=== PATIENT | female | born 1955 | race Caucasian/White ===

== ENCOUNTER 2018-01-20 14:40 | Outpatient (CLI) | payer OTHER | END 2018-01-20 15:30 | disposition home or self-care (01) | LOC: SLEEP 14:40 | PROVIDERS: ATTEND Nurse Practitioner Family | DX: G47.10 Hypersomnia, unspecified (principal); G47.50 Parasomnia, unspecified; J44.9 Chronic obstructive pulmonary disease, unspecified; R60.0 Localized edema; M79.7 Fibromyalgia; F41.9 Anxiety disorder, unspecified; Z87.891 Personal history of nicotine dependence ==

== ENCOUNTER → 2018-01-21 | Outpatient (CLI) | payer OTHER ==
[2018-01-21 14:49] LABS: ABG BASE EXCESS 1.1 MMOL/L (-2.5-2.5); ABG OXYGEN SATURATION 98 % (94-100); ABG PCO2 38 MMHG (35-45); ABG PH 7.44 (7.37-7.43); ABG PO2 97 MMHG (79-93)
[2018-01-21 14:50] LABS: ALLENS TEST YES-POS; INSPIRED O2 RA; VENTILATOR NO
--- NOTE | 2018-01-21 16:12 | Diagnostic Imaging Report ---
PATIENT HISTORY: Difficulty breathing. TECHNIQUE: Two views of the chest. COMPARISON: None. FINDINGS: The lung volumes are normal. No focal consolidation is seen. No large pleural effusion or pneumothorax is seen. The cardiomediastinal silhouette is normal in size and contour. No acute osseous abnormality is seen. IMPRESSION: No acute pulmonary abnormality seen. Dictated by: Dictated on workstation # [id number]
== END ==
LOC: RAD 13:59
PROVIDERS: ATTEND Nurse Practitioner Family
DX: J44.9 Chronic obstructive pulmonary disease, unspecified (principal); G47.50 Parasomnia, unspecified; G47.10 Hypersomnia, unspecified; M79.7 Fibromyalgia; F41.9 Anxiety disorder, unspecified; Z87.891 Personal history of nicotine dependence
CPT/HCPCS: 36600; 71046; 82805

== ENCOUNTER → 2018-02-08 | Outpatient (CLI) | payer OTHER | LOC: CARD 10:13 → EDUNIT# 11:00 | PROVIDERS: ATTEND Nurse Practitioner Family | DX: R06.09 Other forms of dyspnea (principal) | CPT/HCPCS: 93225; 93226; 93306 ==

== ENCOUNTER → 2018-02-14 | Outpatient (CLI) | payer OTHER ==
[~2018-02-14] MED LIST: RT-ALBUTEROL SULF 2.5 MG/3 ML PRE-MIX VIAL INH ONE
== END ==
LOC: EDUNIT# 01-26 13:00 → RT 09:57
PROVIDERS: ATTEND Nurse Practitioner Family
DX: J44.9 Chronic obstructive pulmonary disease, unspecified (principal); Z87.891 Personal history of nicotine dependence; R06.00 Dyspnea, unspecified; G47.50 Parasomnia, unspecified; G47.10 Hypersomnia, unspecified; M79.7 Fibromyalgia; F41.9 Anxiety disorder, unspecified
CPT/HCPCS: 94060; 94726; 94729

== ENCOUNTER → 2018-02-15 | Outpatient (CLI) | payer OTHER ==
[~2018-02-15] MED LIST changes: +CATHETER FLUSH 10 ML SYR IV PRN; +REGADENOSON 0.4 MG/5 ML SYR (LEXISCAN) IV ONE; -RT-ALBUTEROL SULF 2.5 MG/3 ML PRE-MIX VIAL INH ONE
[2018-02-15 08:51] VITALS: BP 138/80
[2018-02-15 09:16] VITALS: BP 146/82
--- NOTE | 2018-02-15 12:25 | STRESS TEST ---
DATE OF SERVICE: 02/15/2018 RESTING AND POST REGADENOSON TECHNETIUM-99M TETROFOSMIN SPECT CT IMAGING ORDERING PHYSICIAN: Anna Medina APRN CLINICAL DIAGNOSES: Shortness of breath and chest discomfort. Baseline images were carried out after injection of 10.7 mCi of technetium-99m Tetrofosmin. This was followed by 0.4 mg regadenoson and 30.5 mCi of technetium-99m Tetrofosmin for stress imaging. The electrocardiogram showed sinus rhythm at baseline. It did not change significantly with the regadenoson infusion. The patient noted some shortness of breath and coughing following regadenoson infusion, which resolved in a few minutes. Overall, she tolerated the procedure well. Review of images at rest and following stress indicates a minimal, localized apical perfusion defect that appeared transient. Gated images show normal global left ventricular systolic function, normal regional wall motion. Left ventricular ejection fraction is calculated to be 86%. Left ventricular end diastolic volume 37 mL. CONCLUSIONS: 1. This study is suggestive of a small amount of apical ischemia. 2. Normal regional wall motion. 3. Normal global left ventricular systolic function with ejection fraction of approximately 86%. Job ID: [id number] DocumentID: [id number] Dictated Date: 02/15/2018 11:51:13 Food Mixer Date: 02/15/2018 12:24:28 Dictated By: REEMA AMEZCUA MD, MA, FACP, FACC,
== END ==
LOC: EDUNIT# 02-04 08:00 → CARD 07:09
PROVIDERS: ATTEND Nurse Practitioner Family
DX: I10 Essential (primary) hypertension (principal); R06.09 Other forms of dyspnea; R07.89 Other chest pain
CPT/HCPCS: 78452; 93017

== ENCOUNTER 2018-02-22 10:10 | Day surgery (SDC) | payer OTHER ==
[2018-02-22] VITALS (11 sets, daily range): BP systolic 115–166; BP diastolic 68–96
[~2018-02-22] VITALS: Ht 170.2 cm; Wt 124.7 kg
--- OUTSIDE RECORDS SUMMARY | 2018-02-22 10:13 | XMS REPORT ---
Author Author KEVYN RAMOS [facility] Address [address] [place] [address] Care Team Providers Care Boiling House Oiler Name Role Phone KEVYN RAMOS Unavailable PROBLEMS Type Condition ICD9-CM Code [id number] Code Onset Dates Condition Status SNOMED Code Problem COPD mixed type J44.9 Active 04174175 Problem Tobacco abuse Z72.0 Active 133531332 Problem PVC (premature ventricular contraction) I49.3 Active 42389455 Problem Tear of lateral meniscus of right knee, current, unspecified tear type , initial encounter S83.281A Active 674310178 Problem Fibromyalgia M79.7 Active 736558094 Problem Tear of medial meniscus of right knee, current, unspecified tear type , initial encounter S83.241A Active 466224320 Problem Current moderate episode of major depressive disorder without prior episode F32.1 Active 79487737 Problem Chronic GERD K21.9 Active 726114851 Problem SCHMITZ (dyspnea on exertion) R06.09 Active 77622562 Problem Other chest pain R07.89 Active 37143753 Problem Primary osteoarthritis of right knee M17.11 Active 693543594594650 Problem History of rheumatoid arthritis Z87.39 Active 904889529 Problem Morbid (severe) obesity due to excess calories E66.01 Active 56249682386436 Problem Essential hypertension I10 Active 24801343 Problem Other chronic pain G89.29 Active 23145272 Problem Mixed hyperlipidemia E78.2 Active 354496645 Problem Sleep difficulties G47.9 Active 601291318 Problem Body mass index (BMI) of 40.0-44.9 in adult Z68.41 Active 698443725 Problem Anxiety F41.9 Active 57188249 Problem Rheumatoid arthritis involving multiple sites, unspecified rheumatoid factor presence M06.9 Active 889185043 Problem Poor balance R26.89 Active 686280447 Problem Suspected chronic obstructive pulmonary disease based on initial evaluation J44.9 Active 56739886 ALLERGIES No Known Allergies ENCOUNTERS Encounter Location Date Diagnosis [facility] [id number], [place] [id number] Feb, [facility] [id number], [place] [id number] Jan, Primary osteoarthritis of right knee M17.11 ; Chronic GERD K21.9 ; History of rheumatoid arthritis Z87.39 and Mixed hyperlipidemia E78.[address] [place] [id number] Dec, [facility] [id number][place] [id number] Dec, SCHMITZ (dyspnea on exertion) R06.09 ; Other chest pain R07.89 ; Essential hypertension I10 ; Tobacco abuse Z72.0 and PVC (premature ventricular contraction) I49.3 [facility] [address] [place] [address] AV [id number], [place] [id number] Dec, [facility] [address] [place] [address] AV [id number], [place] [id number] Dec, Tear of medial meniscus of right knee, current, unspecified tear type, initial encounter S83.241A and Tear of lateral meniscus of right knee, current, unspecified tear type, initial encounter S83.281A [facility] [address] [place] [address] [id number], [place] [id number] Nov, Right knee pain M25.561 and Encounter for immunization Z23 [facility] [address] [place] [address] AV [id number], [place] [id number] Oct, Acute pain of right knee M25.[address] [id number], [place] [id number] Oct, [address] [place] [id number] Oct, Essential hypertension I10 ; Mixed hyperlipidemia E78.2 ; Current moderate episode of major depressive disorder without prior episode F32.1 ; Anxiety F41.9 ; Chronic GERD K21.9 ; Acute pain of right knee M25.561 ; Fibromyalgia M79.7 ; COPD mixed type J44.9 ; Cough R05 ; BMI 40.0-44.9, adult Z68.41 [address] Sleep [address] G47.9 [facility] [address] [facility] [address] [id number][place] [id number] Oct, [facility] [place] [id number], [place] [id number] Sep, COPD mixed type J44.[address] [place] [id number] Aug, Chronic GERD K21.9 ; Essential hypertension I10 ; SOB (shortness of breath ) on exertion R06.02 ; Morbid (severe) obesity due to excess calories E66.01 ; Body mass index (BMI) of 40.0-44.9 in adult Z68.41 and BMI 40.0-44.9, adult Z68.[address] [place] [address] [id number] Aug, COPD mixed type J44.[address] [id number], [place] [id number] Aug, SOB (shortness of breath) on exertion R06.[address] [place] [address] [id number] Aug, [place] [address] [place] [address] [id number] Aug, BMI 40.0-44.9, adult Z68.41 ; Essential hypertension I10 ; Suspected chronic obstructive pulmonary disease based on initial evaluation J44.9 and SOB (shortness of breath) on exertion R06.02 [facility] [address] [facility] [id number], [place] [id number] July, [address] [place] [address] [id number] July, Suspected chronic obstructive pulmonary disease based on initial evaluation J44.9 and Cough R05 [facility] [place] [address] [place] [address] [id number] July, Essential hypertension I10 ; COPD mixed type J44.9 ; Suspected chronic obstructive pulmonary disease based on initial evaluation J44.9 ; Cough R05 ; Encounter for immunization Z23 and BMI 40.0-44.9, adult Z68.[address] [place] [address] [id number] Jun, Essential hypertension I10 ; Chronic GERD K21.9 ; SOB (shortness of breath ) on exertion R06.02 ; Suspected chronic obstructive pulmonary disease based on initial evaluation J44.9 and Elevated blood pressure reading R03.0 [place] [id number] [place] [id number] May, [place] [address] [place] [id number] Apr, Mixed hyperlipidemia E78.2 ; Current moderate episode of major depressive disorder without prior episode F32.1 ; Anxiety F41.9 ; Fibromyalgia M79.7 ; Essential hypertension I10 ; Sleep difficulties G47.9 ; Chronic GERD K21.9 ; BMI 40.0-44.9, adult Z68.41 ; Rheumatoid arthritis involving multiple sites, unspecified rheumatoid factor presence M06.9 and Cough R05 [place] [address] [place] [id number] Mar, BMI 40.0-44.9, adult Z68.41 and Influenza J11.1 [place] [address] [place] [address] [id number] Mar, Current moderate episode of major depressive disorder without prior episode F32.1 ; Anxiety F41.9 ; Fibromyalgia M79.7 ; Essential hypertension I10 ; Sleep difficulties G47.9 ; Mixed hyperlipidemia E78.2 ; Chronic GERD K21.9 ; Poor balance R26.89 ; Morbid (severe) obesity due to excess calories E66.01 ; Body mass index (BMI) of 40.0-44.9 in adult Z68.41 ; Epigastric pain R10.13 ; Other chronic pain G89.29 and BMI 40.0-44.9, adult Z68.[address] [place] [id number] Mar, IMMUNIZATIONS No Known Immunizations SOCIAL HISTORY Never Assessed REASON FOR VISIT Cardiology consult PLAN OF CARE Activity Details Follow Up 2 Months Reason: Pending Test Holter Test Pending Test Lexiscan Stress Nuclear Test VITAL SIGNS Height 67.5 in 2017-12-31 Weight 275 lbs 2017-12-31 Heart Rate 88 bpm 2017-12-31 Respiratory Rate 18 2017-12-31 BMI 42.43 kg/m2 2017-12-31 Blood pressure systolic 136 mmHg 2017-12-31 Blood pressure diastolic 84 mmHg 2017-12-31 MEDICATIONS Medication Instructions Dosage Frequency Start Date End Date Duration Status Melatonin 5 MG Orally Once a day 1 tablet at bedtime as needed with food 24h Active Nexium 40 mg Orally Once a day 1 capsule 24h 30 days Active Aspirin 325 MG Orally Once a day 1 tablet 24h Active Naproxen 500 MG Orally every 12 hrs 1 tablet with food or milk as needed 12h Active Losartan Potassium 100 mg Orally Once a day 1 tablet Once a day Orally 0 24h 30 days Active Atorvastatin Calcium 20 mg Orally Once a day at bedtime 1 tablet Oct, 0 days Active ProAir RespiClick 108 (90 Base) MCG/ACT Inhalation every 4-6 hrs 2 puffs as needed Apr, 30 days Active Amlodipine Besylate 5 mg Orally as directed TAKE ONE TABLET BY MOUTH DAILY 30 days Active Lexapro 20 mg Orally Once a day 1 tablet 24h Active Hydrochlorothiazide 50 mg Orally Once a day 1 tablet in the morning 24h 30 days Active Tramadol HCl 50 mg Orally every 6 hrs 1 tablet as needed 6h Nov, Dec, 30 days Active Effexor 150 MG Orally Once a day 1 tablet with food 24h Active BusPIRone HCl 10 mg Orally 3 times a day 1 tablet 8h Active Symbicort 160-4.5 MCG/ACT Inhalation Twice a day 2 puffs 12h Jan, 30 days Active Gabapentin 800 MG Orally 4 times a day 1 tablet 6h Active Singulair 10 mg Orally Once a day 1 tablet in the evening 24h July, 30 days Active RESULTS Name Result Date Reference Range Echo 2D PROCEDURES Procedure Date Ordered Result Body Site EKG, TRACING (IN-HOUSE) 2017-12-31 N/A ELECTROCARDIOGRAM, TRACING Dec 31, 2017 INSTRUCTIONS MEDICATIONS ADMINISTERED No Known Medications MEDICAL (GENERAL) HISTORY Type Description Date Medical History fibromyalgia Medical History hypertension Medical History rheumatoid arthritis Medical History depression Medical History anxiety Medical History irritable bowel syndrome Medical History restless leg syndrome Medical History chronic obstructive pulmonary disease (COPD) Medical History CXR 09/01/17 lungs are clear, heart silhouette is normal, no acuet diseaase, no significant abnormality noted. Surgical History Total hysterectomy, abdominal 1992 Surgical History tonsillectomy 1962 Surgical History cholecystectomy 1994 Surgical History arthroscopoy right knee 1996 Hospitalization History Surgery(s)/Childbirth(s) only Hospitalization History concussion 1989
--- OUTSIDE RECORDS SUMMARY | 2018-02-22 10:13 | XMS REPORT ---
Author Author BRITTANIE ALANIS [facility] Address [address] [place] [address] Care Team Providers Care Precision Assembly Inspector Name Role Phone BRITTANIE ALANIS Unavailable PROBLEMS Type Condition ICD9-CM Code [id number] Code Onset Dates Condition Status SNOMED Code Problem Tobacco abuse Z72.0 Active 121758571 Problem SCHMITZ (dyspnea on exertion) R06.09 Active 96495730 Problem Other chest pain R07.89 Active 44622386 Problem Hyperlipidemia, unspecified hyperlipidemia type E78.5 Active 16320104 Problem Fibromyalgia M79.7 Active 495570318 Problem Tear of lateral meniscus of right knee, current, unspecified tear type , initial encounter S83.281A Active 326932559 Problem Current moderate episode of major depressive disorder without prior episode F32.1 Active 93656497 Problem Sleep difficulties G47.9 Active 703092807 Problem History of rheumatoid arthritis Z87.39 Active 252516858 Problem PVC (premature ventricular contraction) I49.3 Active 55449617 Problem Tear of medial meniscus of right knee, current, unspecified tear type , initial encounter S83.241A Active 704236263 Problem Primary osteoarthritis of right knee M17.11 Active 555684782321928 Problem Morbid (severe) obesity due to excess calories E66.01 Active 71365184880255 Problem Essential hypertension I10 Active 23619125 Problem Other chronic pain G89.29 Active 67716713 Problem Mixed hyperlipidemia E78.2 Active 342190766 Problem Body mass index (BMI) of 40.0-44.9 in adult Z68.41 Active 542931070 Problem Rheumatoid arthritis involving multiple sites, unspecified rheumatoid factor presence M06.9 Active 368864619 Problem Anxiety F41.9 Active 81520603 Problem Suspected chronic obstructive pulmonary disease based on initial evaluation J44.9 Active 74771434 Problem Poor balance R26.89 Active 935637145 Problem Chronic GERD K21.9 Active 218863063 Problem COPD mixed type J44.9 Active 94790423 ALLERGIES No Information ENCOUNTERS Encounter Location Date Diagnosis [facility] [address] [id number][place] [id number] Feb, Essential hypertension I10 [facility] [address] [place] [address] AVE [id number], [place] [id number] Feb, Chest pain, unspecified type R07.9 ; SCHMITZ (dyspnea on exertion) R06.09 ; Essential hypertension I10 ; Hyperlipidemia, unspecified hyperlipidemia type E78.5 and Tobacco abuse Z72.0 [facility] [address] [place] [address] A[address] [id number], [place] [id number] Jan, Primary osteoarthritis of right knee M17.11 ; Chronic GERD K21.9 ; History of rheumatoid arthritis Z87.39 and Mixed hyperlipidemia E78.2 [facility] [id number], [place] [id number] Dec, [facility] [address] [place] [address] [id number] [place] [address] [id number] Dec, SCHMITZ (dyspnea on exertion) R06.09 ; Other chest pain R07.89 ; Essential hypertension I10 ; Tobacco abuse Z72.0 and PVC (premature ventricular contraction) I49.3 [facility] [address] [place] [address] A[address] [id number], [place] [id number] Dec, [facility] [address] [place] [address] A[address] [id number], [place] [id number] Dec, Tear of medial meniscus of right knee, current, unspecified tear type, initial encounter S83.241A and Tear of lateral meniscus of right knee, current, unspecified tear type, initial encounter S83.281A [facility] [address] [place] [address] A[address] [id number], [place] [id number] Nov, Right knee pain M25.561 and Encounter for immunization Z23 [facility] [address] [facility] [address] [id number], [place] [id number] Oct, Acute pain of right knee M25.561 [facility] [id number] [place] [address] [id number] Oct, [place] [id number] [id number] Oct, Essential hypertension I10 ; Mixed hyperlipidemia E78.2 ; Current moderate episode of major depressive disorder without prior episode F32.1 ; Anxiety F41.9 ; Chronic GERD K21.9 ; Acute pain of right knee M25.561 ; Fibromyalgia M79.7 ; COPD mixed type J44.9 ; Cough R05 ; BMI 40.0-44.9, adult Z68.41 and Sleep difficulties G47.[address] [id number], [place] [id number] Oct, [address] [place] [id number] Sep, COPD mixed type J44.9 [address] [id number] Aug, Chronic GERD K21.9 ; Essential hypertension I10 ; SOB (shortness of breath ) on exertion R06.02 ; Morbid (severe) obesity due to excess calories E66.01 ; Body mass index (BMI) of 40.0-44.9 in adult Z68.41 and BMI 40.0-44.9, adult Z68.41 [address] [place] [address] [id number] Aug, COPD mixed type J44.[address] [id number], [place] [id number] Aug, SOB (shortness of breath) on exertion R06.[address] [id number], [place] [id number] Aug, [address] [place] [address] [id number] Aug, BMI 40.0-44.9, adult Z68.41 ; Essential hypertension I10 ; Suspected chronic obstructive pulmonary disease based on initial evaluation J44.9 and SOB (shortness of breath) on exertion R06.02 [address] [place] [address] [id number] July, [address] [place] [address] [id number] July, Suspected chronic obstructive pulmonary disease based on initial evaluation J44.9 and Cough R05 [place] [id number] [place] [address] [id number] July, Essential hypertension I10 ; COPD mixed type J44.9 ; Suspected chronic obstructive pulmonary disease based on initial evaluation J44.9 ; Cough R05 ; Encounter for immunization Z23 and BMI 40.0-44.9, adult Z68.41 [place] [id number] [place] [address] [id number] Jun, Essential hypertension I10 ; Chronic GERD K21.9 ; SOB (shortness of breath ) on exertion R06.02 ; Suspected chronic obstructive pulmonary disease based on initial evaluation J44.9 and Elevated blood pressure reading R03.0 [place] [id number] [place] [address] [id number] May, [place] [id number] [place] [address] [id number] Apr, Mixed hyperlipidemia E78.2 ; Current moderate episode of major depressive disorder without prior episode F32.1 ; Anxiety F41.9 ; Fibromyalgia M79.7 ; Essential hypertension I10 ; Sleep difficulties G47.9 ; Chronic GERD K21.9 ; BMI 40.0-44.9, adult Z68.41 ; Rheumatoid arthritis involving multiple sites, unspecified rheumatoid factor presence M06.9 and Cough R05 [address] [place] [address] [id number] Mar, BMI 40.0-44.9, adult Z68.41 and Influenza J11.1 [place] [id number] [place] [address] [id number] Mar, Current moderate episode of major depressive [...] pain G89.29 and BMI 40.0-44.9, adult Z68.41 [facility] [address] [facility] [id number] [place] [id number] Mar, IMMUNIZATIONS No Known Immunizations SOCIAL HISTORY Never Assessed REASON FOR VISIT refill losartan PLAN OF CARE VITAL SIGNS MEDICATIONS Medication Instructions Dosage Frequency Start Date End Date Duration Status Losartan Potassium 100 mg Orally Once a day 1 tablet Once a day Orally 0 24h 90 days Active RESULTS No Results PROCEDURES No Known procedures INSTRUCTIONS MEDICATIONS ADMINISTERED No Known Medications MEDICAL [...] Hospitalization History Surgery(s)/Childbirth(s) only Hospitalization History concussion 1988
--- OUTSIDE RECORDS SUMMARY | 2018-02-22 10:13 | XMS REPORT ---
Author Author ABDIEL ALEJANDRA Organization [facility] Address [address] [place] [address] Care Team Providers Care Mechanical Spreader Operator Name Role Phone ABDIEL ALEJANDRA Unavailable PROBLEMS Type Condition ICD9-CM Code KSG74-LW Code Onset Dates Condition Status SNOMED Code Problem Morbid (severe) obesity due to excess calories E66.01 Active 52478448189198 Problem Sleep difficulties G47.9 Active 531132537 Problem Poor balance R26.89 Active 585409192 Problem Tear of lateral meniscus of right knee, current, unspecified tear type , initial encounter S83.281A Active 237111706 Problem Tear of medial meniscus of right knee, current, unspecified tear type , initial encounter S83.241A Active 957699585 Problem Rheumatoid arthritis involving multiple sites, unspecified rheumatoid factor presence M06.9 Active 938293349 Problem Body mass index (BMI) of 40.0-44.9 in adult Z68.41 Active 155961740 Problem COPD mixed type J44.9 Active 00842835 Problem Suspected chronic obstructive pulmonary disease based on initial evaluation J44.9 Active 88903453 Problem Current moderate episode of major depressive disorder without prior episode F32.1 Active 31074076 Problem Anxiety F41.9 Active 05493480 Problem Fibromyalgia M79.7 Active 117191783 Problem Chronic GERD K21.9 Active 951169312 Problem Other chronic pain G89.29 Active 28663935 Problem Essential hypertension I10 Active 02805415 Problem Mixed hyperlipidemia E78.2 Active 806097078 ALLERGIES No Information ENCOUNTERS Encounter Location Date Diagnosis [facility] [address] [id number] [place] [id number] Jan, [facility] [address] [id number] [place] [id number] Dec, [facility] [address] [id number] [id number] Dec, [facility] [address] [address] [facility] [address] [id number], [place] [id number] Dec, Tear of medial meniscus of right knee, current, unspecified tear type, initial encounter S83.241A and Tear of lateral meniscus of right knee, current, unspecified tear type, initial encounter S83.281A [facility] [address] [address] [facility] [address] [id number], [place] [id number] Nov, Right knee pain M25.561 and Encounter for immunization Z23 [facility] [address] [id number], [place] [id number] Oct, Acute pain of right knee M25.[address] [place] [address] [id number] Oct, [address] [place] [address] [id number] Oct, Essential hypertension I10 ; Mixed hyperlipidemia E78.2 ; Current moderate episode of major depressive disorder without prior episode F32.1 ; Anxiety F41.9 ; Chronic GERD K21.9 ; Acute pain of right knee M25.561 ; Fibromyalgia M79.7 ; COPD mixed type J44.9 ; Cough R05 ; BMI 40.0-44.9, adult Z68.41 and Sleep difficulties G47.[address] [id number] [id number] Oct, [place] [address] [id number] [id number] Sep, COPD mixed type J44.[address] [place] [address] [id number] Aug, Chronic GERD K21.9 ; Essential hypertension I10 ; SOB (shortness of breath ) on exertion R06.02 ; Morbid (severe) obesity due to excess calories E66.01 ; Body mass index (BMI) of 40.0-44.9 in adult Z68.41 and BMI 40.0-44.9, adult Z68.[address] [place] [address] [id number] Aug, COPD mixed type J44.9 [place] [address] [facility] [address] [id number], [place] [id number] Aug, SOB (shortness of breath) on exertion R06.[address] [place] [address] [id number] Aug, [place] [id number] [place] [address] [id number] Aug, BMI 40.0-44.9, adult Z68.41 ; Essential hypertension I10 ; Suspected chronic obstructive pulmonary disease based on initial evaluation J44.9 and SOB (shortness of breath) on exertion R06.02 [place] [id number] [place] [address] [id number] July, [place] [address] [place] [address] [id number] July, Suspected chronic obstructive pulmonary disease based on initial evaluation J44.9 and Cough R05 [place] [address] [place] [address] [id number] July, Essential hypertension I10 ; COPD mixed type J44.9 ; Suspected chronic obstructive pulmonary disease based on initial evaluation J44.9 ; Cough R05 ; Encounter for immunization Z23 and BMI 40.0-44.9, adult Z68.[address] [place] [address] [id number] Jun, Essential hypertension I10 ; Chronic GERD K21.9 ; SOB (shortness of breath ) on exertion R06.02 ; Suspected chronic obstructive pulmonary disease based on initial evaluation J44.9 and Elevated blood pressure reading R03.[address] [place] [address] [id number] May, [place] [id number] [place] [address] [id number] Apr, Mixed hyperlipidemia E78.2 ; Current moderate episode of major depressive disorder without prior episode F32.1 ; Anxiety F41.9 ; Fibromyalgia M79.7 ; Essential hypertension I10 ; Sleep difficulties G47.9 ; Chronic GERD K21.9 ; BMI 40.0-44.9, adult Z68.41 ; Rheumatoid arthritis involving multiple sites, unspecified rheumatoid factor presence M06.9 and Cough R05 [address] [id number] Mar, BMI 40.0-44.9, adult Z68.41 and Influenza J11.[address] [place] [address] [id number] Mar, Current moderate episode of major depressive [...] pain G89.29 and BMI 40.0-44.9, adult Z68.41 [place] [id number] [id number] Mar, IMMUNIZATIONS No Known Immunizations SOCIAL HISTORY Never Assessed REASON FOR VISIT PLAN OF CARE VITAL SIGNS MEDICATIONS Unknown Medications RESULTS No Results PROCEDURES No Known procedures [...]
--- OUTSIDE RECORDS SUMMARY | 2018-02-22 10:13 | XMS REPORT ---
Author Author ABDIEL ALEJANDRA Organization [facility] Address [address] [place] [address] Care Team Providers Care Brain Picker Name Role Phone ABDIEL ALEJANDRA Unavailable PROBLEMS Type Condition ICD9-CM Code DVT39-OF Code Onset Dates Condition Status SNOMED Code Problem Morbid (severe) obesity due to excess calories E66.01 Active 96749595977075 Problem Sleep difficulties G47.9 Active 613294724 Problem Poor balance R26.89 Active 214400358 Problem Tear of lateral meniscus of right knee, current, unspecified tear type , initial encounter S83.281A Active 608926748 Problem Tear of medial meniscus of right knee, current, unspecified tear type , initial encounter S83.241A Active 687308572 Problem Rheumatoid arthritis involving multiple sites, unspecified rheumatoid factor presence M06.9 Active 909282934 Problem Body mass index (BMI) of 40.0-44.9 in adult Z68.41 Active 813480844 Problem COPD mixed type J44.9 Active 31899367 Problem Suspected chronic obstructive pulmonary disease based on initial evaluation J44.9 Active 32718885 Problem Current moderate episode of major depressive disorder without prior episode F32.1 Active 68895097 Problem Anxiety F41.9 Active 56563672 Problem Fibromyalgia M79.7 Active 534003196 Problem Chronic GERD K21.9 Active 430141019 Problem Other chronic pain G89.29 Active 06123801 Problem Essential hypertension I10 Active 88467932 Problem Mixed hyperlipidemia E78.2 Active 150286567 ALLERGIES No Information ENCOUNTERS Encounter Location Date Diagnosis [facility] [address] [id number] [place] [id number] Jan, [facility] [address] [id number] [place] [id number] Dec, [facility] [address] [id number], [place] [id number] Dec, [facility] [address] [facility] [address] [id number], [place] [id number] Dec, Tear of medial meniscus of right knee, current, unspecified tear type, initial encounter S83.241A and Tear of lateral meniscus of right knee, current, unspecified tear type, initial encounter S83.281A [facility] [address] [facility] [address] [id number], [place] [id number] Nov, Right knee pain M25.561 and Encounter for immunization Z23 [facility] [address] [id number], [place] [id number] Oct, Acute pain of right knee M25.561 [address] [place] [address] [id number] Oct, [address] [place] [address] [id number] Oct, Essential hypertension I10 ; Mixed hyperlipidemia E78.2 ; Current moderate episode of major depressive disorder without prior episode F32.1 ; Anxiety F41.9 ; Chronic GERD K21.9 ; Acute pain of right knee M25.561 ; Fibromyalgia M79.7 ; COPD mixed type J44.9 ; Cough R05 ; BMI 40.0-44.9, adult Z68.41 and Sleep difficulties G47.[address] [id number], [place] [id number] Oct, [place] [address] [place] [id number][place] [id number] Sep, COPD mixed type J44.9 [address] [place] [address] [id number] Aug, Chronic GERD K21.9 ; Essential hypertension I10 ; SOB (shortness of breath ) on exertion R06.02 ; Morbid (severe) obesity due to excess calories E66.01 ; Body mass index (BMI) of 40.0-44.9 in adult Z68.41 and BMI 40.0-44.9, adult Z68.41 [address] [place] [address] [id number] Aug, COPD mixed type J44.9 [place] [address] [facility] [address] [id number], [place] [id number] Aug, SOB (shortness of breath) on exertion R06.02 [address] [place] [address] [id number] Aug, [place] [address] [place] [address] [id number] Aug, BMI 40.0-44.9, adult Z68.41 ; Essential hypertension I10 ; Suspected chronic obstructive pulmonary disease based on initial evaluation J44.9 and SOB (shortness of breath) on exertion R06.02 [place] [address] [place] [address] [id number] July, [place] [address] [place] [address] [id number] July, Suspected chronic obstructive pulmonary disease based on initial evaluation J44.9 and Cough R05 [place] [address] [place] [address] [id number] July, Essential hypertension I10 ; COPD mixed type J44.9 ; Suspected chronic obstructive pulmonary disease based on initial evaluation J44.9 ; Cough R05 ; Encounter for immunization Z23 and BMI 40.0-44.9, adult Z68.41 [address] [place] [address] [id number] Jun, Essential hypertension I10 ; Chronic GERD K21.9 ; SOB (shortness of breath ) on exertion R06.02 ; Suspected chronic obstructive pulmonary disease based on initial evaluation J44.9 and Elevated blood pressure reading R03.0 [address] [place] [address] [id number] May, [place] [address] [place] [address] [id number] Apr, Mixed hyperlipidemia E78.2 ; Current moderate episode of major depressive disorder without prior episode F32.1 ; Anxiety F41.9 ; Fibromyalgia M79.7 ; Essential hypertension I10 ; Sleep difficulties G47.9 ; Chronic GERD K21.9 ; BMI 40.0-44.9, adult Z68.41 ; Rheumatoid arthritis involving multiple sites, unspecified rheumatoid factor presence M06.9 and Cough R05 [address] [id number] Mar, BMI 40.0-44.9, adult Z68.41 and Influenza J11.[address] [place] [address] [id number] Mar, Current moderate episode of major depressive [...] pain G89.29 and BMI 40.0-44.9, adult Z68.[address] [id number], [place] [id number] Mar, IMMUNIZATIONS No Known Immunizations SOCIAL HISTORY Never Assessed REASON FOR VISIT phone call PLAN OF CARE VITAL SIGNS MEDICATIONS Unknown [...]
--- OUTSIDE RECORDS SUMMARY | 2018-02-22 10:13 | XMS REPORT ---
Author Author AB CAMEJO [facility] Address [address] [place] [address] Care Team Providers Care Mine Car Dispatcher Name Role Phone AB CAMEJO Unavailable PROBLEMS Type Condition ICD9-CM Code HNH83-QC Code Onset Dates Condition Status SNOMED Code Problem Rheumatoid arthritis involving multiple sites, unspecified rheumatoid factor presence M06.9 Active 598656621 Problem COPD mixed type J44.9 Active 62096031 Problem Suspected chronic obstructive pulmonary disease based on initial evaluation J44.9 Active 57995031 Problem Tear of lateral meniscus of right knee, current, unspecified tear type , initial encounter S83.281A Active 338720814 Problem Poor balance R26.89 Active 271026804 Problem Tear of medial meniscus of right knee, current, unspecified tear type , initial encounter S83.241A Active 989131641 Problem Other chest pain R07.89 Active 51562533 Problem Tobacco abuse Z72.0 Active 365375032 Problem PVC (premature ventricular contraction) I49.3 Active 56876690 Problem SCHMITZ (dyspnea on exertion) R06.09 Active 23548151 Problem Other chronic pain G89.29 Active 63257131 Problem Mixed hyperlipidemia E78.2 Active 315950549 Problem Sleep difficulties G47.9 Active 929441392 Problem Fibromyalgia M79.7 Active 327430465 Problem Anxiety F41.9 Active 93891548 Problem Current moderate episode of major depressive disorder without prior episode F32.1 Active 04777469 Problem Morbid (severe) obesity due to excess calories E66.01 Active 87089996512599 Problem Chronic GERD K21.9 Active 295206909 Problem Essential hypertension I10 Active 78108586 Problem Body mass index (BMI) of 40.0-44.9 in adult Z68.41 Active 401006324 ALLERGIES No Information ENCOUNTERS Encounter Location Date Diagnosis [facility] [address] [id number] [place] [id number] Feb, [address] [id number], [place] [id number] Jan, [place] [id number] [id number] Dec, [address] [id number], [place] [id number] Dec, SCHMITZ (dyspnea on exertion) R06.09 ; Other chest pain R07.89 ; Essential hypertension I10 ; Tobacco abuse Z72.0 and PVC (premature ventricular contraction) I49.[address] [id number], [place] [id number] Dec, [facility] [address] [id number], [place] [id number] Dec, Tear of medial meniscus of right knee, current, unspecified tear type, initial encounter S83.241A and Tear of lateral meniscus of right knee, current, unspecified tear type, initial encounter S83.281A [facility] [address] [id number], [place] [id number] Nov, Right knee pain M25.561 and Encounter for immunization Z23 [id number] [place] [address] [id number] Oct, Acute pain of right knee M25.561 [place] [id number] [place] [address] [id number] Oct, [place] [id number] [place] [address] [id number] Oct, Essential hypertension I10 ; Mixed hyperlipidemia E78.2 ; Current moderate episode of major depressive disorder without prior episode F32.1 ; Anxiety F41.9 ; Chronic GERD K21.9 ; Acute pain of right knee M25.561 ; Fibromyalgia M79.7 ; COPD mixed type J44.9 ; Cough R05 ; BMI 40.0-44.9, adult Z68.41 and Sleep difficulties G47.[address] [id number], [place] [id number] Oct, [place] [id number] [id number] Sep, COPD mixed type J44.9 [address] [place] [address] [id number] Aug, Chronic GERD K21.9 ; Essential hypertension I10 ; SOB (shortness of breath ) on exertion R06.02 ; Morbid (severe) obesity due to excess calories E66.01 ; Body mass index (BMI) of 40.0-44.9 in adult Z68.41 and BMI 40.0-44.9, adult Z68.[address] [id number] [place] [id number] Aug, COPD mixed type J44.[address] [id number], [place] [id number] Aug, SOB (shortness of breath) on exertion R06.[id number] [place] [address] [id number] Aug, [address] [place] [address] [id number] Aug, BMI 40.0-44.9, adult Z68.41 ; Essential hypertension I10 ; Suspected chronic obstructive pulmonary disease based on initial evaluation J44.9 and SOB (shortness of breath) on exertion R06.02 [address] [place] [address] [id number] July, [address] [place] [address] [id number] July, Suspected chronic obstructive pulmonary disease based on initial evaluation J44.9 and Cough R05 [address] [place] [address] [id number] July, Essential hypertension I10 ; COPD mixed type J44.9 ; Suspected chronic obstructive pulmonary disease based on initial evaluation J44.9 ; Cough R05 ; Encounter for immunization Z23 and BMI 40.0-44.9, adult Z68.[id number] [place] [address] [id number] Jun, Essential hypertension I10 ; Chronic GERD K21.9 ; SOB (shortness of breath ) on exertion R06.02 ; Suspected chronic obstructive pulmonary disease based on initial evaluation J44.9 and Elevated blood pressure reading R03.0 [address] [place] [address] [id number] May, [place] [id number] [place] [address] [id number] Apr, Mixed hyperlipidemia E78.2 ; Current moderate episode of major depressive disorder without prior episode F32.1 ; Anxiety F41.9 ; Fibromyalgia M79.7 ; Essential hypertension I10 ; Sleep difficulties G47.9 ; Chronic GERD K21.9 ; BMI 40.0-44.9, adult Z68.41 ; Rheumatoid arthritis involving multiple sites, unspecified rheumatoid factor presence M06.9 and Cough R05 [address] [place] [address] [id number] Mar, BMI 40.0-44.9, adult Z68.41 and Influenza J11.1 [place] [id number] [place] [address] [id number] Mar, Current moderate episode of major depressive [...] pain G89.29 and BMI 40.0-44.9, adult Z68.41 [address] [place] [address] [id number] Mar, IMMUNIZATIONS No Known Immunizations SOCIAL HISTORY Never Assessed REASON FOR VISIT med refill PLAN OF CARE VITAL SIGNS MEDICATIONS Medication Instructions Dosage Frequency Start Date End Date Duration Status Atorvastatin Calcium 20 mg Orally Once a day at bedtime 1 tablet Oct, 90 days Active RESULTS No Results PROCEDURES [...]
--- OUTSIDE RECORDS SUMMARY | 2018-02-22 10:14 | XMS REPORT ---
Author Author AB CAMEJO [facility] Address [address] [place] [address] Care Team Providers Care Vehicle Damage Appraiser Name Role Phone CAMEJOAB Unavailable PROBLEMS Type Condition ICD9-CM Code ZRB48-HB Code Onset Dates Condition Status SNOMED Code Problem Other chronic pain G89.29 Active 40798669 Problem Morbid (severe) obesity due to excess calories E66.01 Active 97606972655889 Problem Mixed hyperlipidemia E78.2 Active 941719524 Problem COPD mixed type J44.9 Active 02565203 Problem Suspected chronic obstructive pulmonary disease based on initial evaluation J44.9 Active 62155582 Problem Sleep difficulties G47.9 Active 466214285 Problem Poor balance R26.89 Active 686635508 Problem Rheumatoid arthritis involving multiple sites, unspecified rheumatoid factor presence M06.9 Active 401619125 Problem Body mass index (BMI) of 40.0-44.9 in adult Z68.41 Active 467495163 Problem Chronic GERD K21.9 Active 058992404 Problem Essential hypertension I10 Active 07861424 Problem Anxiety F41.9 Active 52347098 Problem Current moderate episode of major depressive disorder without prior episode F32.1 Active 25047965 Problem Fibromyalgia M79.7 Active 186618048 ALLERGIES No Information ENCOUNTERS Encounter Location Date [facility] [address] [id number] [place] [id number] Dec, [facility] [address] [id number] [place] [id number] Nov, [facility] [address] [id number] [place] [id number] Nov, [facility] [address] [id number] [place] [id number] Oct, Acute pain of right knee M25.561 [facility] [id number] [place] [address] [id number] Oct, [facility] [address] [id number] [place] [address] [id number] Oct, Essential hypertension I10 ; Mixed hyperlipidemia E78.2 ; Current moderate episode of major depressive disorder without prior episode F32.1 ; Anxiety F41.9 ; Chronic GERD K21.9 ; Acute pain of right knee M25.561 ; Fibromyalgia M79.7 ; COPD mixed type J44.9 ; Cough R05 ; BMI 40.0-44.9, adult Z68.41 and Sleep difficulties G47.[address] [id number] [id number] Oct, [facility] [id number] [place] [address] [id number] Sep, COPD mixed type J44.9 [place] [id number] [place] [address] [id number] Aug, Chronic GERD K21.9 ; Essential hypertension I10 ; SOB (shortness of breath ) on exertion R06.02 ; Morbid (severe) obesity due to excess calories E66.01 ; Body mass index (BMI) of 40.0-44.9 in adult Z68.41 and BMI 40.0-44.9, adult Z68.41 [facility] [address] [id number] [place] [address] [id number] Aug, COPD mixed type J44.[address] [id number][place] [id number] Aug, SOB (shortness of breath) on exertion R06.02 [facility] [address] [place] [address] [id number] Aug, [address] [place] [address] [id number] Aug, BMI 40.0-44.9, adult Z68.41 ; Essential hypertension I10 ; Suspected chronic obstructive pulmonary disease based on initial evaluation J44.9 and SOB (shortness of breath) on exertion R06.02 [place] [id number] [place] [address] [id number] July, [place] [id number] [id number] July, Suspected chronic obstructive pulmonary disease based on initial evaluation J44.9 and Cough R05 [address] [place] [address] [id number] July, Essential hypertension I10 ; COPD mixed type J44.9 ; Suspected chronic obstructive pulmonary disease based on initial evaluation J44.9 ; Cough R05 ; Encounter for immunization Z23 and BMI 40.0-44.9, adult Z68.41 [address] [place] [address] [id number] Jun, Essential hypertension I10 ; Chronic GERD K21.9 ; SOB (shortness of breath ) on exertion R06.02 ; Suspected chronic obstructive pulmonary disease based on initial evaluation J44.9 and Elevated blood pressure reading R03.0 [place] [id number] [place] [address] [id number] May, [place] [id number] [place] [address] [id number] Apr, Mixed hyperlipidemia E78.2 ; Current moderate episode of major depressive disorder without prior episode F32.1 ; Anxiety F41.9 ; Fibromyalgia M79.7 ; Essential hypertension I10 ; Sleep difficulties G47.9 ; Chronic GERD K21.9 ; BMI 40.0-44.9, adult Z68.41 ; Rheumatoid arthritis involving multiple sites, unspecified rheumatoid factor presence M06.9 and Cough R05 [address] [place] [address] [id number] Mar, BMI 40.0-44.9, adult Z68.41 and Influenza J11.1 [address] [place] [address] [id number] Mar, Current moderate episode of major depressive [...] pain G89.29 and BMI 40.0-44.9, adult Z68.[address] [id number] [place] [id number] Mar, IMMUNIZATIONS No Known Immunizations SOCIAL HISTORY Never Assessed REASON FOR VISIT knee bferrisma PLAN OF CARE VITAL SIGNS MEDICATIONS Unknown Medications RESULTS Name Result Date Reference Range Xray : Knee, Right 3 views (IN HOUSE) 2017-10-27 PROCEDURES Procedure Date Ordered Result Body Site X-RAY EXAM OF KNEE, 3 Oct 27, 2017 INSTRUCTIONS MEDICATIONS ADMINISTERED No Known Medications [...]
--- OUTSIDE RECORDS SUMMARY | 2018-02-22 10:14 | XMS REPORT ---
Author Author MACKENZIE MONGE [facility] Address [address] [place] [address] Care Team Providers Care Associate Director Financial Aid Name Role Phone JOSÉ LUIS MONGEO Unavailable PROBLEMS Type Condition ICD9-CM Code NVG72-LU Code Onset Dates Condition Status SNOMED Code Problem Other chronic pain G89.29 Active 32487752 Problem Morbid (severe) obesity due to excess calories E66.01 Active 32500010089358 Problem Mixed hyperlipidemia E78.2 Active 198316175 Problem COPD mixed type J44.9 Active 86139342 Problem Suspected chronic obstructive pulmonary disease based on initial evaluation J44.9 Active 24321769 Problem Sleep difficulties G47.9 Active 566444778 Problem Poor balance R26.89 Active 346977798 Problem Rheumatoid arthritis involving multiple sites, unspecified rheumatoid factor presence M06.9 Active 455152371 Problem Body mass index (BMI) of 40.0-44.9 in adult Z68.41 Active 562081993 Problem Chronic GERD K21.9 Active 589557666 Problem Essential hypertension I10 Active 66227296 Problem Anxiety F41.9 Active 89968040 Problem Current moderate episode of major depressive disorder without prior episode F32.1 Active 14222738 Problem Fibromyalgia M79.7 Active 079368745 ALLERGIES No Information ENCOUNTERS Encounter Location Date [facility] [address] [id number] [place] [id number] Dec, [facility] [address] [id number] [place]ARC[place] [id number] Nov, [facility] [address] [id number] [place] [id number] Nov, [facility] [address] [id number] [place] [id number] Oct, Acute pain of right knee M25.561 [facility] [address] [place] [id number] Oct, [place] [id number] [place] [address] [id number] Oct, Essential hypertension I10 ; Mixed hyperlipidemia E78.2 ; Current moderate episode of major depressive disorder without prior episode F32.1 ; Anxiety F41.9 ; Chronic GERD K21.9 ; Acute pain of right knee M25.561 ; Fibromyalgia M79.7 ; COPD mixed type J44.9 ; Cough R05 ; BMI 40.0-44.9, adult Z68.41 and Sleep difficulties G47.[address] [id number] [place]ARCOS[place] [id number] Oct, [address] [place] [address] [id number] Sep, COPD mixed type J44.[address] [place] [address] [id number] Aug, Chronic GERD K21.9 ; Essential hypertension I10 ; SOB (shortness of breath ) on exertion R06.02 ; Morbid (severe) obesity due to excess calories E66.01 ; Body mass index (BMI) of 40.0-44.9 in adult Z68.41 and BMI 40.0-44.9, adult Z68.[address] [place] [address] [id number] Aug, COPD mixed type J44.[address] [id number] [place]ARC[place] [id number] Aug, SOB (shortness of breath) on exertion R06.[address] [place] [address] [id number] Aug, [place] [id number] [place] [address] [id number] Aug, BMI 40.0-44.9, adult Z68.41 ; Essential hypertension I10 ; Suspected chronic obstructive pulmonary disease based on initial evaluation J44.9 and SOB (shortness of breath) on exertion R06.02 [place] [id number] [place] [address] [id number] July, [place] [id number] [id number] July, Suspected chronic obstructive pulmonary disease based on initial evaluation J44.9 and Cough R05 [address] [place] [address] [id number] July, Essential hypertension I10 ; COPD mixed type J44.9 ; Suspected chronic obstructive pulmonary disease based on initial evaluation J44.9 ; Cough R05 ; Encounter for immunization Z23 and BMI 40.0-44.9, adult Z68.[address] [place] [address] [id number] Jun, Essential hypertension I10 ; Chronic GERD K21.9 ; SOB (shortness of breath ) on exertion R06.02 ; Suspected chronic obstructive pulmonary disease based on initial evaluation J44.9 and Elevated blood pressure reading R03.[address] [place] [address] [id number] May, [address] [place] [address] [id number] Apr, Mixed hyperlipidemia E78.2 ; Current moderate episode of major depressive disorder without prior episode F32.1 ; Anxiety F41.9 ; Fibromyalgia M79.7 ; Essential hypertension I10 ; Sleep difficulties G47.9 ; Chronic GERD K21.9 ; BMI 40.0-44.9, adult Z68.41 ; Rheumatoid arthritis involving multiple sites, unspecified rheumatoid factor presence M06.9 and Cough R05 [address] [place] [address] [id number] Mar, BMI 40.0-44.9, adult Z68.41 and Influenza J11.[address] [place] [address] [id number] Mar, Current moderate episode of major depressive [...] pain G89.29 and BMI 40.0-44.9, adult Z68.[address] [id number] [place] [id number] Mar, IMMUNIZATIONS No Known Immunizations SOCIAL HISTORY Never Assessed REASON FOR VISIT Requests return call PLAN OF CARE VITAL SIGNS MEDICATIONS [...] Total hysterectomy, abdominal 1992 Surgical History tonsillectomy 1963 Surgical History cholecystectomy 1994 Surgical History arthroscopoy right knee 1996 Hospitalization History Surgery(s)/Childbirth(s) only Hospitalization History concussion 1989
--- OUTSIDE RECORDS SUMMARY | 2018-02-22 10:14 | XMS REPORT ---
Author Author ALEK MCKENZIE Organization [facility] Address [address] [place] [address] Care Team Providers Care Cone Chocolate Dipper Name Role Phone ALEK MCKENZIE Unavailable PROBLEMS Type Condition ICD9-CM Code QKV74-OS Code Onset Dates Condition Status SNOMED Code Problem Other chronic pain G89.29 Active 14474698 Problem Morbid (severe) obesity due to excess calories E66.01 Active 53600945415438 Problem Mixed hyperlipidemia E78.2 Active 924866904 Problem COPD mixed type J44.9 Active 77404585 Problem Suspected chronic obstructive pulmonary disease based on initial evaluation J44.9 Active 89962281 Problem Sleep difficulties G47.9 Active 771373208 Problem Poor balance R26.89 Active 717826421 Problem Rheumatoid arthritis involving multiple sites, unspecified rheumatoid factor presence M06.9 Active 351408266 Problem Body mass index (BMI) of 40.0-44.9 in adult Z68.41 Active 183869515 Problem Chronic GERD K21.9 Active 852007274 Problem Essential hypertension I10 Active 65659184 Problem Anxiety F41.9 Active 67576616 Problem Current moderate episode of major depressive disorder without prior episode F32.1 Active 46536994 Problem Fibromyalgia M79.7 Active 574280572 ALLERGIES No Information ENCOUNTERS Encounter Location Date Diagnosis [facility] [address] [id number] [place] [id number] Dec, [facility] [address] [id number] [place] [id number] Nov, [facility] [address] [id number] [place] [id number] Nov, [facility] [address] [id number] [place] [id number] Oct, Acute pain of right knee M25.561 [address] [id number] Oct, [place] [id number] [place] [address] [id number] Oct, Essential hypertension I10 ; Mixed hyperlipidemia E78.2 ; Current moderate episode of major depressive disorder without prior episode F32.1 ; Anxiety F41.9 ; Chronic GERD K21.9 ; Acute pain of right knee M25.561 ; Fibromyalgia M79.7 ; COPD mixed type J44.9 ; Cough R05 ; BMI 40.0-44.9, adult Z68.41 and Sleep difficulties G47.[address] [id number] [id number] Oct, [place] [id number] [place] [address] [id number] Sep, COPD mixed type J44.9 [address] [place] [address] [id number] Aug, Chronic GERD K21.9 ; Essential hypertension I10 ; SOB (shortness of breath ) on exertion R06.02 ; Morbid (severe) obesity due to excess calories E66.01 ; Body mass index (BMI) of 40.0-44.9 in adult Z68.41 and BMI 40.0-44.9, adult Z68.41 [address] [id number] Aug, COPD mixed type J44.[address] [id number], [place] [id number] Aug, SOB (shortness of breath) on exertion R06.02 [address] [place] [address] [id number] Aug, [place] [id number] [place] [address] [id number] Aug, BMI 40.0-44.9, adult Z68.41 ; Essential hypertension I10 ; Suspected chronic obstructive pulmonary disease based on initial evaluation J44.9 and SOB (shortness of breath) on exertion R06.02 [id number] [id number] July, [address] [place] [address] [id number] July, Suspected chronic obstructive pulmonary disease based on initial evaluation J44.9 and Cough R05 [address] [place] [address] [id number] July, Essential hypertension I10 ; COPD mixed type J44.9 ; Suspected chronic obstructive pulmonary disease based on initial evaluation J44.9 ; Cough R05 ; Encounter for immunization Z23 and BMI 40.0-44.9, adult Z68.41 [address] [place] [address] [id number] Jun, Essential hypertension I10 ; Chronic GERD K21.9 ; SOB (shortness of breath ) on exertion R06.02 ; Suspected chronic obstructive pulmonary disease based on initial evaluation J44.9 and Elevated blood pressure reading R03.0 [place] [id number] [place] [address] [id number] May, [place] [id number] [place] [address] [id number] Apr, Mixed hyperlipidemia E78.2 ; Current moderate episode of major depressive disorder without prior episode F32.1 ; Anxiety F41.9 ; Fibromyalgia M79.7 ; Essential hypertension I10 ; Sleep difficulties G47.9 ; Chronic GERD K21.9 ; BMI 40.0-44.9, adult Z68.41 ; Rheumatoid arthritis involving multiple sites, unspecified rheumatoid factor presence M06.9 and Cough R05 [place] [id number] [id number] Mar, BMI 40.0-44.9, adult Z68.41 and Influenza J11.[address] [place] [address] [id number] Mar, Current moderate episode of major depressive [...] pain G89.29 and BMI 40.0-44.9, adult Z68.41 [facility] [address] [facility] [id number] [place] [id number] Mar, IMMUNIZATIONS No Known Immunizations SOCIAL HISTORY Never Assessed REASON FOR VISIT [facility] 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
--- OUTSIDE RECORDS SUMMARY | 2018-02-22 10:14 | XMS REPORT ---
Author Author ALEK MCKENZIE Organization [facility] Address [address] [place] [address] Care Team Providers Care Canoe Builder Name Role Phone ALEK MCKENZIE Unavailable PROBLEMS Type Condition ICD9-CM Code GCT07-PS Code Onset Dates Condition Status SNOMED Code Problem Other chronic pain G89.29 Active 07780111 Problem Morbid (severe) obesity due to excess calories E66.01 Active 11608729654938 Problem Mixed hyperlipidemia E78.2 Active 806772333 Problem COPD mixed type J44.9 Active 40741939 Problem Suspected chronic obstructive pulmonary disease based on initial evaluation J44.9 Active 75080935 Problem Sleep difficulties G47.9 Active 989410048 Problem Poor balance R26.89 Active 038277069 Problem Rheumatoid arthritis involving multiple sites, unspecified rheumatoid factor presence M06.9 Active 250056025 Problem Body mass index (BMI) of 40.0-44.9 in adult Z68.41 Active 887689121 Problem Chronic GERD K21.9 Active 253672521 Problem Essential hypertension I10 Active 68087104 Problem Anxiety F41.9 Active 99609510 Problem Current moderate episode of major depressive disorder without prior episode F32.1 Active 11876700 Problem Fibromyalgia M79.7 Active 184705171 ALLERGIES No Known Allergies ENCOUNTERS Encounter Location Date Diagnosis [facility] [address] [id number] [place] [id number] Dec, [facility] [address] [id number] [place] [id number] Nov, [facility] [address] [id number] [place] [id number] Nov, [facility] [employer] [id number] [place] [id number] Oct, Acute pain of right knee M25.561 [address]100[place] [id number] Oct, [place] [id number] [place] [id number] Oct, Essential hypertension I10 ; Mixed hyperlipidemia E78.2 ; Current moderate episode of major depressive disorder without prior episode F32.1 ; Anxiety F41.9 ; Chronic GERD K21.9 ; Acute pain of right knee M25.561 ; Fibromyalgia M79.7 ; COPD mixed type J44.9 ; Cough R05 ; BMI 40.0-44.9, adult Z68.41 and Sleep difficulties G47.[address] [id number], [place] [id number] Oct, [address] [place] [address] [id number] Sep, COPD mixed type J44.9 [address] [place] [address] [id number] Aug, Chronic GERD K21.9 ; Essential hypertension I10 ; SOB (shortness of breath ) on exertion R06.02 ; Morbid (severe) obesity due to excess calories E66.01 ; Body mass index (BMI) of 40.0-44.9 in adult Z68.41 and BMI 40.0-44.9, adult Z68.41 [address]65100[place] [id number] Aug, COPD mixed type J44.[address] [id number], [place] [id number] Aug, SOB (shortness of breath) on exertion R06.02 [address] [place] [address] [id number] Aug, [place] [id number] [place] [address] [id number] Aug, BMI 40.0-44.9, adult Z68.41 ; Essential hypertension I10 ; Suspected chronic obstructive pulmonary disease based on initial evaluation J44.9 and SOB (shortness of breath) on exertion R06.02 [address]100[place] [id number] July, [address] [place] [address] [id number] July, Suspected chronic obstructive pulmonary disease based on initial evaluation J44.9 and Cough R05 [address] [place] [address] [id number] July, Essential hypertension I10 ; COPD mixed type J44.9 ; Suspected chronic obstructive pulmonary disease based on initial evaluation J44.9 ; Cough R05 ; Encounter for immunization Z23 and BMI 40.0-44.9, adult Z68.41 [address] [place] [address] [id number] Jun, Essential hypertension I10 ; Chronic GERD K21.9 ; SOB (shortness of breath ) on exertion R06.02 ; Suspected chronic obstructive pulmonary disease based on initial evaluation J44.9 and Elevated blood pressure reading R03.0 [place] [id number] [place] [address] [id number] May, [place] [id number] [place] [address] [id number] Apr, Mixed hyperlipidemia E78.2 ; Current moderate episode of major depressive disorder without prior episode F32.1 ; Anxiety F41.9 ; Fibromyalgia M79.7 ; Essential hypertension I10 ; Sleep difficulties G47.9 ; Chronic GERD K21.9 ; BMI 40.0-44.9, adult Z68.41 ; Rheumatoid arthritis involving multiple sites, unspecified rheumatoid factor presence M06.9 and Cough R05 [place] [id number] [id number] Mar, BMI 40.0-44.9, adult Z68.41 and Influenza J11.[address] [place] [address] [id number] Mar, Current moderate episode of major depressive [...] pain G89.29 and BMI 40.0-44.9, adult Z68.41 [facility] [place] [address] [facility] [id number] [place] [id number] Mar, IMMUNIZATIONS No Known Immunizations SOCIAL HISTORY Never Assessed REASON FOR VISIT CHM- CXR and PFT f/u [facility] PLAN OF CARE Activity Details Follow Up 3 Months, prn pending referral and symptoms Reason: VITAL SIGNS Height 67.5 in 2017-09-03 Weight 263.6 lbs 2017-09-03 Temperature 97.4 degrees Fahrenheit 2017-09-03 Heart Rate 100 bpm 2017-09-03 Respiratory Rate 20 2017-09-03 BMI 40.67 kg/m2 2017-09-03 Blood pressure systolic 124 mmHg 2017-09-03 Blood pressure diastolic 70 mmHg 2017-09-03 MEDICATIONS Medication Instructions Dosage Frequency Start Date End Date Duration Status Lexapro 20 mg Orally Once a day 1 tablet 24h Active Losartan Potassium 100 mg 1 tablet Once a day Orally 0 0 Active Nexium 40 mg Orally Once a day 1 capsule 24h Active Hydrochlorothiazide 50 mg Orally Once a day 1 tablet in the morning 24h 0 Active Singulair 10 mg Orally Once a day 1 tablet in the evening 24h July, 0 days Active Effexor 150 MG Orally Once a day 1 tablet with food 24h Active BusPIRone HCl 10 mg Orally 3 times a day 1 tablet 8h Active Symbicort 160-4.5 MCG/ACT Inhalation Twice a day 2 puffs 12h Active Gabapentin 800 MG Orally 4 times a day 1 tablet 6h Active ProAir RespiClick 108 (90 Base) MCG/ACT Inhalation every 4-6 hrs 2 puffs as needed Apr, 0 days Active Melatonin 5 MG Orally Once a day 1 tablet at bedtime as needed with food 24h Active Amlodipine Besylate 5 mg Orally Once a day 1 tablet 24h 0 Active Aspirin 325 MG Orally Once a day 1 tablet 24h Active Naproxen 500 MG Orally every 12 hrs 1 tablet with food or milk as needed 12h Active RESULTS No Results PROCEDURES No Known [...]
--- OUTSIDE RECORDS SUMMARY | 2018-02-22 10:14 | XMS REPORT ---
Author Author AB CAMEJO [facility] Address [address] [place] [address] Care Team Providers Care Stock Counter Name Role Phone CAMEJOAB Unavailable PROBLEMS Type Condition ICD9-CM Code MJQ76-ED Code Onset Dates Condition Status SNOMED Code Problem Other chronic pain G89.29 Active 58512928 Problem Morbid (severe) obesity due to excess calories E66.01 Active 23861525368016 Problem Mixed hyperlipidemia E78.2 Active 493289356 Problem COPD mixed type J44.9 Active 19671841 Problem Suspected chronic obstructive pulmonary disease based on initial evaluation J44.9 Active 23417459 Problem Sleep difficulties G47.9 Active 261398551 Problem Poor balance R26.89 Active 599948387 Problem Rheumatoid arthritis involving multiple sites, unspecified rheumatoid factor presence M06.9 Active 121073461 Problem Body mass index (BMI) of 40.0-44.9 in adult Z68.41 Active 221319277 Problem Chronic GERD K21.9 Active 856865293 Problem Essential hypertension I10 Active 76920209 Problem Anxiety F41.9 Active 11425063 Problem Current moderate episode of major depressive disorder without prior episode F32.1 Active 68226053 Problem Fibromyalgia M79.7 Active 771715534 ALLERGIES No Known Allergies ENCOUNTERS Encounter Location Date Diagnosis [facility] [address] [id number] [place] [id number] Dec, [facility] [address] [id number] [place] [id number] Nov, [facility] [address] [id number] [place] [id number] Nov, [facility] [address] [id number] [place], [place] [id number] Oct, Acute pain of right knee M25.561 [facility] [address], [place] [id number] Oct, [address] [place] [address] [id number] Oct, Essential hypertension I10 ; Mixed hyperlipidemia E78.2 ; Current moderate episode of major depressive disorder without prior episode F32.1 ; Anxiety F41.9 ; Chronic GERD K21.9 ; Acute pain of right knee M25.561 ; Fibromyalgia M79.7 ; COPD mixed type J44.9 ; Cough R05 ; BMI 40.0-44.9, adult Z68.41 and Sleep difficulties G47.[address] [id number] [id number] Oct, [place] [id number] [place] [address] [id number] Sep, COPD mixed type J44.9 [place] [id number] [place] [address] [id number] Aug, Chronic GERD K21.9 ; Essential hypertension I10 ; SOB (shortness of breath ) on exertion R06.02 ; Morbid (severe) obesity due to excess calories E66.01 ; Body mass index (BMI) of 40.0-44.9 in adult Z68.41 and BMI 40.0-44.9, adult Z68.41 [address] [place] [address] [id number] Aug, COPD mixed type J44.[address] [id number], [place] [id number] Aug, SOB (shortness of breath) on exertion R06.[address] [place] [address] [id number] Aug, [address] [place] [address] [id number] Aug, BMI 40.0-44.9, adult Z68.41 ; Essential hypertension I10 ; Suspected chronic obstructive pulmonary disease based on initial evaluation J44.9 and SOB (shortness of breath) on exertion R06.02 [place] [id number] [place] [address] [id number] July, [place] [id number] [id number] July, Suspected chronic obstructive pulmonary disease based on initial evaluation J44.9 and Cough R05 [address] [place] [address] [id number] July, Essential hypertension I10 ; COPD mixed type J44.9 ; Suspected chronic obstructive pulmonary disease based on initial evaluation J44.9 ; Cough R05 ; Encounter for immunization Z23 and BMI 40.0-44.9, adult Z68.41 [address] [place] [address] [id number] Jun, Essential hypertension I10 ; Chronic GERD K21.9 ; SOB (shortness of breath ) on exertion R06.02 ; Suspected chronic obstructive pulmonary disease based on initial evaluation J44.9 and Elevated blood pressure reading R03.0 [place] [id number] [place] [address] [id number] May, [address] [place] [address] [id number] Apr, Mixed hyperlipidemia E78.2 ; Current moderate episode of major depressive disorder without prior episode F32.1 ; Anxiety F41.9 ; Fibromyalgia M79.7 ; Essential hypertension I10 ; Sleep difficulties G47.9 ; Chronic GERD K21.9 ; BMI 40.0-44.9, adult Z68.41 ; Rheumatoid arthritis involving multiple sites, unspecified rheumatoid factor presence M06.9 and Cough R05 [address] [place] [address] [id number] Mar, BMI 40.0-44.9, adult Z68.41 and Influenza J11.[address] [place] [address] [id number] Mar, Current moderate episode of major depressive [...] pain G89.29 and BMI 40.0-44.9, adult Z68.[address] [id number] [place] [id number] Mar, IMMUNIZATIONS No Known Immunizations SOCIAL HISTORY Never Assessed REASON FOR VISIT New provider visit, right knee pain Emperatriz LEO PLAN OF CARE Activity Details Follow Up 3 months or as indicated by lab Reason:CHM VITAL SIGNS Height 67.5 in 2017-10-25 Weight 268.0 lbs 2017-10-25 Temperature 98.4 degrees Fahrenheit 2017-10-25 Heart Rate 74 bpm 2017-10-25 Respiratory Rate 18 2017-10-25 BMI 41.35 kg/m2 2017-10-25 Blood pressure systolic 146 mmHg 2017-10-25 Blood pressure diastolic 94 mmHg 2017-10-25 MEDICATIONS Medication Instructions Dosage Frequency Start Date End Date Duration Status Amlodipine Besylate 5 mg Orally as directed TAKE ONE TABLET BY MOUTH DAILY 30 days Active Gabapentin 800 MG Orally 4 times a day 1 tablet 6h Active Hydrochlorothiazide 50 mg Orally Once a day 1 tablet in the morning 24h 30 days Active ProAir RespiClick 108 (90 Base) MCG/ACT Inhalation every 4-6 hrs 2 puffs as needed Apr, 30 days Active Symbicort 160-4.5 MCG/ACT Inhalation Twice a day 2 puffs 12h 18 Jan, 2018 30 days Active Singulair 10 mg Orally Once a day 1 tablet in the evening 24h July, 30 days Active Effexor 150 MG Orally Once a day 1 tablet with food 24h Active Naproxen 500 MG Orally every 12 hrs 1 tablet with food or milk as needed 12h Active Melatonin 5 MG Orally Once a day 1 tablet at bedtime as needed with food 24h Active Nexium 40 mg Orally Once a day 1 capsule 24h 30 days Active Lexapro 20 mg Orally Once a day 1 tablet 24h Active Losartan Potassium 100 mg Orally Once a day 1 tablet Once a day Orally 0 24h 30 days Active BusPIRone HCl 10 mg Orally 3 times a day 1 tablet 8h Active Aspirin 325 MG Orally Once a day 1 tablet 24h Active RESULTS No Results PROCEDURES Procedure Date Ordered Result Body Site LIPID PANEL Oct 25, 2017 EMIR, ROUTINE* Oct 25, 2017 INSTRUCTIONS MEDICATIONS ADMINISTERED No Known Medications [...]
--- OUTSIDE RECORDS SUMMARY | 2018-02-22 10:14 | XMS REPORT ---
Author Author AB CAMEJO [facility] Address [address] [place] [address] Care Team Providers Care Structural Test Engineer Name Role Phone CAMEJOAB Unavailable PROBLEMS Type Condition ICD9-CM Code OHU99-EZ Code Onset Dates Condition Status SNOMED Code Problem Other chronic pain G89.29 Active 01350288 Problem Morbid (severe) obesity due to excess calories E66.01 Active 43639830569023 Problem Mixed hyperlipidemia E78.2 Active 882469209 Problem COPD mixed type J44.9 Active 02012103 Problem Suspected chronic obstructive pulmonary disease based on initial evaluation J44.9 Active 76129283 Problem Sleep difficulties G47.9 Active 735077428 Problem Poor balance R26.89 Active 057959201 Problem Rheumatoid arthritis involving multiple sites, unspecified rheumatoid factor presence M06.9 Active 065221177 Problem Body mass index (BMI) of 40.0-44.9 in adult Z68.41 Active 599824616 Problem Chronic GERD K21.9 Active 161229848 Problem Essential hypertension I10 Active 16971574 Problem Anxiety F41.9 Active 67653352 Problem Current moderate episode of major depressive disorder without prior episode F32.1 Active 40135830 Problem Fibromyalgia M79.7 Active 557656354 ALLERGIES No Information ENCOUNTERS Encounter Location Date Diagnosis [facility] [address] [id number] [place] [id number] Dec, [facility] [address] [id number] [place] [id number] Nov, [facility] [address] [id number] [place] [id number] Nov, [facility] [address] [id number] [place] [id number] Oct, Acute pain of right knee M25.561 [facility] [id number] [place] [address] [id number] Oct, [facility] [id number] [place] [address] [id number] Oct, Essential hypertension I10 ; Mixed hyperlipidemia E78.2 ; Current moderate episode of major depressive disorder without prior episode F32.1 ; Anxiety F41.9 ; Chronic GERD K21.9 ; Acute pain of right knee M25.561 ; Fibromyalgia M79.7 ; COPD mixed type J44.9 ; Cough R05 ; BMI 40.0-44.9, adult Z68.41 and Sleep difficulties G47.[address] [id number] [place] [id number] Oct, [facility] [id number] [place] [address] [id number] Sep, COPD mixed type J44.9 [place] [id number] [place] [address] [id number] Aug, Chronic GERD K21.9 ; Essential hypertension I10 ; SOB (shortness of breath ) on exertion R06.02 ; Morbid (severe) obesity due to excess calories E66.01 ; Body mass index (BMI) of 40.0-44.9 in adult Z68.41 and BMI 40.0-44.9, adult Z68.41 [facility] [id number] [place] [address] [id number] Aug, COPD mixed type J44.[address] [id number] [place] [id number] Aug, SOB (shortness of breath) on exertion R06.02 [facility] [address] [place] [address] [id number] Aug, [address] [place] [address] [id number] Aug, BMI 40.0-44.9, adult Z68.41 ; Essential hypertension I10 ; Suspected chronic obstructive pulmonary disease based on initial evaluation J44.9 and SOB (shortness of breath) on exertion R06.02 [id number] [place] [address] [id number] July, [place] [id number] [id number] July, Suspected chronic obstructive pulmonary disease based on initial evaluation J44.9 and Cough R05 [address] [place] [address] [id number] July, Essential hypertension I10 ; COPD mixed type J44.9 ; Suspected chronic obstructive pulmonary disease based on initial evaluation J44.9 ; Cough R05 ; Encounter for immunization Z23 and BMI 40.0-44.9, adult Z68.[address] [place] [address] [id number] Jun, Essential hypertension I10 ; Chronic GERD K21.9 ; SOB (shortness of breath ) on exertion R06.02 ; Suspected chronic obstructive pulmonary disease based on initial evaluation J44.9 and Elevated blood pressure reading R03.0 [address] [id number] [place] [address] [id number] May, [id number] [place] [address] [id number] Apr, Mixed hyperlipidemia E78.2 ; Current moderate episode of major depressive disorder without prior episode F32.1 ; Anxiety F41.9 ; Fibromyalgia M79.7 ; Essential hypertension I10 ; Sleep difficulties G47.9 ; Chronic GERD K21.9 ; BMI 40.0-44.9, adult Z68.41 ; Rheumatoid arthritis involving multiple sites, unspecified rheumatoid factor presence M06.9 and Cough R05 [address] [place] [address] [id number] Mar, BMI 40.0-44.9, adult Z68.41 and Influenza J11.[address] [place] [address] [id number] Mar, Current moderate episode of major depressive [...] pain G89.29 and BMI 40.0-44.9, adult Z68.[address] [id number] [place] [id number] Mar, IMMUNIZATIONS No Known Immunizations SOCIAL HISTORY Never Assessed REASON FOR VISIT lab results/medication PLAN OF CARE VITAL SIGNS MEDICATIONS Medication Instructions Dosage Frequency Start Date End Date Duration Status Atorvastatin Calcium 20 mg Orally Once a day at bedtime 1 tablet Oct, 0 days Active RESULTS No Results PROCEDURES No [...]
--- OUTSIDE RECORDS SUMMARY | 2018-02-22 10:14 | XMS REPORT ---
Author Author ALEK MCKENZIE Organization [facility] Address [address] [place] [address] Care Team Providers Care Chro Name Role Phone ALEK MCKENZIE Unavailable PROBLEMS Type Condition ICD9-CM Code CCL29-WU Code Onset Dates Condition Status SNOMED Code Problem Other chronic pain G89.29 Active 93755297 Problem Morbid (severe) obesity due to excess calories E66.01 Active 29714384784639 Problem Mixed hyperlipidemia E78.2 Active 658278652 Problem COPD mixed type J44.9 Active 09776481 Problem Suspected chronic obstructive pulmonary disease based on initial evaluation J44.9 Active 50807719 Problem Sleep difficulties G47.9 Active 524822925 Problem Poor balance R26.89 Active 748274516 Problem Rheumatoid arthritis involving multiple sites, unspecified rheumatoid factor presence M06.9 Active 190653370 Problem Body mass index (BMI) of 40.0-44.9 in adult Z68.41 Active 214666209 Problem Chronic GERD K21.9 Active 492824339 Problem Essential hypertension I10 Active 38187853 Problem Anxiety F41.9 Active 86073522 Problem Current moderate episode of major depressive disorder without prior episode F32.1 Active 35316962 Problem Fibromyalgia M79.7 Active 811058787 ALLERGIES No Information ENCOUNTERS Encounter Location Date [facility] [address] [address] [id number] [place] [id number] Dec, [facility] [address] [address] [id number] [place] [id number] Nov, [facility] [address] [address] [id number] [place] [id number] Nov, [facility] [address] [id number] [place] [id number] Oct, Acute pain of right knee M25.561 [address] [id number] Oct, [place] [id number] [place] [id number] Oct, Essential hypertension I10 ; Mixed hyperlipidemia E78.2 ; Current moderate episode of major depressive disorder without prior episode F32.1 ; Anxiety F41.9 ; Chronic GERD K21.9 ; Acute pain of right knee M25.561 ; Fibromyalgia M79.7 ; COPD mixed type J44.9 ; Cough R05 ; BMI 40.0-44.9, adult Z68.41 and Sleep difficulties G47.[address] [id number] [place] [id number] Oct, [place] [id number] [place] [address] [id number] Sep, COPD mixed type J44.9 [address] [place] [address] [id number] Aug, Chronic GERD K21.9 ; Essential hypertension I10 ; SOB (shortness of breath ) on exertion R06.02 ; Morbid (severe) obesity due to excess calories E66.01 ; Body mass index (BMI) of 40.0-44.9 in adult Z68.41 and BMI 40.0-44.9, adult Z68.41 [address] [id number] Aug, COPD mixed type J44.[address] [id number] [place] [id number] Aug, SOB (shortness of breath) on exertion R06.[address] [place] [address] [id number] Aug, [place] [id number] [place] [address] [id number] Aug, BMI 40.0-44.9, adult Z68.41 ; Essential hypertension I10 ; Suspected chronic obstructive pulmonary disease based on initial evaluation J44.9 and SOB (shortness of breath) on exertion R06.02 [id number] [id number] July, [address] [place] [address] [id number] July, Suspected chronic obstructive pulmonary disease based on initial evaluation J44.9 and Cough R05 [address] [place] [address] [id number] July, Essential hypertension I10 ; COPD mixed type J44.9 ; Suspected chronic obstructive pulmonary disease based on initial evaluation J44.9 ; Cough R05 ; Encounter for immunization Z23 and BMI 40.0-44.9, adult Z68.41 [address] [place] [address] [id number] Jun, Essential hypertension I10 ; Chronic GERD K21.9 ; SOB (shortness of breath ) on exertion R06.02 ; Suspected chronic obstructive pulmonary disease based on initial evaluation J44.9 and Elevated blood pressure reading R03.0 [id number] [place] [address] [id number] May, [id number] [place] [address] [id number] Apr, Mixed hyperlipidemia E78.2 ; Current moderate episode of major depressive disorder without prior episode F32.1 ; Anxiety F41.9 ; Fibromyalgia M79.7 ; Essential hypertension I10 ; Sleep difficulties G47.9 ; Chronic GERD K21.9 ; BMI 40.0-44.9, adult Z68.41 ; Rheumatoid arthritis involving multiple sites, unspecified rheumatoid factor presence M06.9 and Cough R05 [place] [id number] [id number] Mar, BMI 40.0-44.9, adult Z68.41 and Influenza J11.[address] [place] [address] [id number] Mar, Current moderate episode of major depressive [...] pain G89.29 and BMI 40.0-44.9, adult Z68.[address] [id number] [place] [id number] Mar, IMMUNIZATIONS No Known Immunizations SOCIAL HISTORY Never Assessed REASON FOR VISIT med refill PLAN OF CARE VITAL SIGNS MEDICATIONS Medication Instructions Dosage Frequency Start Date End Date Duration Status Singulair 10 mg Orally Once a day 1 tablet in the evening 24h July, 0 days Active RESULTS No Results PROCEDURES [...]
--- OUTSIDE RECORDS SUMMARY | 2018-02-22 10:15 | XMS REPORT ---
Author Author ALEK MCKENZIE Organization [facility] Address [address] [place] [address] Care Team Providers Care Commercial Lending Vice President Name Role Phone ALEK MCKENZIE Unavailable PROBLEMS Type Condition ICD9-CM Code HIQ68-LY Code Onset Dates Condition Status SNOMED Code Problem Other chronic pain G89.29 Active 91256388 Problem Morbid (severe) obesity due to excess calories E66.01 Active 58331432064334 Problem Mixed hyperlipidemia E78.2 Active 382452732 Problem COPD mixed type J44.9 Active 72149007 Problem Suspected chronic obstructive pulmonary disease based on initial evaluation J44.9 Active 29402227 Problem Sleep difficulties G47.9 Active 349837091 Problem Poor balance R26.89 Active 369888077 Problem Rheumatoid arthritis involving multiple sites, unspecified rheumatoid factor presence M06.9 Active 896434032 Problem Body mass index (BMI) of 40.0-44.9 in adult Z68.41 Active 490808264 Problem Chronic GERD K21.9 Active 461077105 Problem Essential hypertension I10 Active 74797543 Problem Anxiety F41.9 Active 73816723 Problem Current moderate episode of major depressive disorder without prior episode F32.1 Active 94201110 Problem Fibromyalgia M79.7 Active 151697867 ALLERGIES No Information ENCOUNTERS Encounter Location Date Diagnosis [facility] [address] [facility] [id number], [place] [id number] Sep, COPD mixed type J44.9 [facility] [address] [facility] [id number], [place] [id number] Aug, Chronic GERD K21.9 and Essential hypertension I10 [facility] [address] [facility] [id number][place] [id number] Aug, COPD mixed type J44.9 [facility] [address] [id number][place] [id number] Aug, SOB (shortness of breath) on exertion R06.[address] [place] [address] [id number] Aug, [place] [id number] [place] [address] [id number] Aug, BMI 40.0-44.9, adult Z68.41 ; Essential hypertension I10 ; Suspected chronic obstructive pulmonary disease based on initial evaluation J44.9 and SOB (shortness of breath) on exertion R06.02 [address] [id number] [place] [address] [id number] July, [place] [id number] [place] [address] [id number] July, Suspected chronic obstructive pulmonary disease based on initial evaluation J44.9 and Cough R05 [address] [place] [id number] [place] [address] [id number] July, Essential hypertension I10 ; COPD mixed type J44.9 ; Suspected chronic obstructive pulmonary disease based on initial evaluation J44.9 ; Cough R05 ; Encounter for immunization Z23 and BMI 40.0-44.9, adult Z68.41 [address] [place] [id number] [place] [address] [id number] Jun, Essential hypertension I10 ; Chronic GERD K21.9 ; SOB (shortness of breath ) on exertion R06.02 ; Suspected chronic obstructive pulmonary disease based on initial evaluation J44.9 and Elevated blood pressure reading R03.0 [address] [id number] [place] [address] [id number] May, [address] [id number] [place] [address] [id number] Apr, Mixed hyperlipidemia E78.2 ; Current moderate episode of major depressive disorder without prior episode F32.1 ; Anxiety F41.9 ; Fibromyalgia M79.7 ; Essential hypertension I10 ; Sleep difficulties G47.9 ; Chronic GERD K21.9 ; BMI 40.0-44.9, adult Z68.41 ; Rheumatoid arthritis involving multiple sites, unspecified rheumatoid factor presence M06.9 and Cough R05 [address] [id number] [place] [address] [place] [id number] Mar, BMI 40.0-44.9, adult Z68.41 and Influenza J11.[address] [id number], [place] [id number] Mar, Current moderate episode of major depressive [...] pain G89.29 and BMI 40.0-44.9, adult Z68.[address] [id number], [place] [id number] Mar, IMMUNIZATIONS No Known Immunizations SOCIAL HISTORY Never Assessed REASON FOR VISIT PALS PLAN OF CARE VITAL SIGNS MEDICATIONS Medication Instructions Dosage Frequency Start Date End Date Duration Status ProAir RespiClick 108 (90 Base) MCG/ACT Inhalation every 4-6 hrs 2 puffs as needed Apr, 0 days Active Bevespi Aerosphere 9-4.8 MCG/ACT Inhalation Twice a day 2 puffs 12h 17 Jun Active RESULTS No Results PROCEDURES No Known [...]
--- OUTSIDE RECORDS SUMMARY | 2018-02-22 10:15 | XMS REPORT ---
Author Author ALEK MCKENZIE Organization [facility] Address [address] [place] [address] Care Team Providers Care Labeling Specialist Name Role Phone ALEK MCKENZIE Unavailable PROBLEMS Type Condition ICD9-CM Code EZL85-AD Code Onset Dates Condition Status SNOMED Code Problem Other chronic pain G89.29 Active 54237329 Problem Morbid (severe) obesity due to excess calories E66.01 Active 91858534653747 Problem Mixed hyperlipidemia E78.2 Active 508375996 Problem COPD mixed type J44.9 Active 65915737 Problem Suspected chronic obstructive pulmonary disease based on initial evaluation J44.9 Active 39239475 Problem Sleep difficulties G47.9 Active 937753534 Problem Poor balance R26.89 Active 855830874 Problem Rheumatoid arthritis involving multiple sites, unspecified rheumatoid factor presence M06.9 Active 566919205 Problem Body mass index (BMI) of 40.0-44.9 in adult Z68.41 Active 540709279 Problem Chronic GERD K21.9 Active 780396180 Problem Essential hypertension I10 Active 84655771 Problem Anxiety F41.9 Active 00998663 Problem Current moderate episode of major depressive disorder without prior episode F32.1 Active 09900334 Problem Fibromyalgia M79.7 Active 927350449 ALLERGIES No Known Allergies ENCOUNTERS Encounter Location Date Diagnosis [facility] [id number] [place], [place] [id number] Dec, [facility] [address] [id number] [place] [id number] Nov, [facility] [place] [address] [facility] [id number], [place] [id number] Oct, Essential hypertension I10 ; Mixed hyperlipidemia E78.2 ; Current moderate episode of major depressive disorder without prior episode F32.1 ; Anxiety F41.9 ; Chronic GERD K21.9 ; Acute pain of right knee M25.561 ; Fibromyalgia M79.7 ; COPD mixed type J44.9 ; Cough R05 ; BMI 40.0-44.9, adult Z68.41 and Sleep difficulties G47.9 [place] [address] [facility] [id number] [place] [id number] Oct, [facility] [address] [place] [address] [id number] Sep, COPD mixed type J44.9 [place] [id number] [place] [address] [id number] Aug, Chronic GERD K21.9 ; Essential hypertension I10 ; SOB (shortness of breath ) on exertion R06.02 ; Morbid (severe) obesity due to excess calories E66.01 ; Body mass index (BMI) of 40.0-44.9 in adult Z68.41 and BMI 40.0-44.9, adult Z68.41 [place] [id number] [place] [address] [id number] Aug, COPD mixed type J44.[address] [id number] [place] [id number] Aug, SOB (shortness of breath) on exertion R06.[address] [place] [address] [id number] Aug, [address] [place] [address] [id number] Aug, BMI 40.0-44.9, adult Z68.41 ; Essential hypertension I10 ; Suspected chronic obstructive pulmonary disease based on initial evaluation J44.9 and SOB (shortness of breath) on exertion R06.02 [facility] [address] [place] [address] [id number] July, [place] [id number] [place] [address] [id number] July, Suspected chronic obstructive pulmonary disease based on initial evaluation J44.9 and Cough R05 [facility] [address] [place] [address] [id number] July, Essential hypertension I10 ; COPD mixed type J44.9 ; Suspected chronic obstructive pulmonary disease based on initial evaluation J44.9 ; Cough R05 ; Encounter for immunization Z23 and BMI 40.0-44.9, adult Z68.41 [address] [place] [address] [id number] 17 Jun, 2017 Essential hypertension I10 ; Chronic GERD K21.9 ; SOB (shortness of breath ) on exertion R06.02 ; Suspected chronic obstructive pulmonary disease based on initial evaluation J44.9 and Elevated blood pressure reading R03.0 [place] [id number] [place] [address] [id number] May, [address] [id number] Apr, Mixed hyperlipidemia E78.2 ; Current moderate episode of major depressive disorder without prior episode F32.1 ; Anxiety F41.9 ; Fibromyalgia M79.7 ; Essential hypertension I10 ; Sleep difficulties G47.9 ; Chronic GERD K21.9 ; BMI 40.0-44.9, adult Z68.41 ; Rheumatoid arthritis involving multiple sites, unspecified rheumatoid factor presence M06.9 and Cough R05 [address] [place] [address] [id number] Mar, BMI 40.0-44.9, adult Z68.41 and Influenza J11.1 [place] [id number] [place] [address] [id number] Mar, Current moderate episode of major depressive [...] pain G89.29 and BMI 40.0-44.9, adult Z68.41 [address] [place] [address] [id number] Mar, IMMUNIZATIONS Vaccine Route Administration Date Status PPSV23 (PNEUMOVAX) IM Intramuscular July 09, 2017 Administered SOCIAL HISTORY Never Assessed REASON FOR VISIT Hypertension/SOB f/u [facility] PLAN OF CARE Activity Details Follow Up 4 Weeks, prn. 3 Months or sooner as needed Reason:CHM COPD VITAL SIGNS Height 67.5 in 2017-07-09 Weight 265 lbs 2017-07-09 Temperature 98.4 degrees Fahrenheit 2017-07-09 Heart Rate 84 bpm 2017-07-09 Respiratory Rate 16 2017-07-09 BMI 40.89 kg/m2 2017-07-09 Blood pressure systolic 130 mmHg 2017-07-09 Blood pressure diastolic 82 mmHg 2017-07-09 MEDICATIONS Medication Instructions Dosage Frequency Start Date End Date Duration Status Hydrochlorothiazide 50 MG Orally Once a day 1 tablet in the morning 24h 0 Active ProAir RespiClick 108 (90 Base) MCG/ACT Inhalation every 4-6 hrs 2 puffs as needed Apr, 0 days Active Nexium 20 MG Orally Once a day 1 capsule 24h Active Amlodipine Besylate 5 mg Orally Once a day 1 tablet 24h 0 Active BusPIRone HCl 10 mg Orally 3 times a day 1 tablet 8h Active Aspirin 325 MG Orally Once a day 1 tablet 24h Active Effexor 75 MG Orally Once a day 1 tablet with food 24h Active Bevespi Aerosphere 9-4.8 MCG/ACT Inhalation Twice a day 2 puffs 12h Jun Active Naproxen 500 MG Orally every 12 hrs 1 tablet with food or milk as needed 12h Active Melatonin 5 MG Orally Once a day 1 tablet at bedtime as needed with food 24h Active Losartan Potassium 100 MG Orally Once a day 1 tablet 24h Active Gabapentin 800 MG Orally 4 times a day 1 tablet 6h Active Singulair 10 mg Orally Once a day 1 tablet in the evening 24h July, 0 days Active Remeron 15 MG Orally Once a day 1 tablet at bedtime 24h Active Effexor 50 MG Orally Once a day 1 tablet with food 24h Active RESULTS No Results PROCEDURES Procedure Date Ordered Result Body Site PPSV23 (PNEUMOVAX) July 09, 2017 SINGLE IMMUNIZATION ADMIN July 09, 2017 INSTRUCTIONS MEDICATIONS ADMINISTERED No Known Medications [...]
--- OUTSIDE RECORDS SUMMARY | 2018-02-22 10:15 | XMS REPORT ---
Author Author ALEK MCKENZIE Organization [facility] Address [address] [place] [address] Care Team Providers Care Sight Mounter Name Role Phone ALEK MCKENZIE Unavailable PROBLEMS Type Condition ICD9-CM Code AIA16-VY Code Onset Dates Condition Status SNOMED Code Problem Other chronic pain G89.29 Active 87186843 Problem Morbid (severe) obesity due to excess calories E66.01 Active 04976176517170 Problem Mixed hyperlipidemia E78.2 Active 160143177 Problem COPD mixed type J44.9 Active 97571000 Problem Suspected chronic obstructive pulmonary disease based on initial evaluation J44.9 Active 58703052 Problem Sleep difficulties G47.9 Active 285696055 Problem Poor balance R26.89 Active 575563779 Problem Rheumatoid arthritis involving multiple sites, unspecified rheumatoid factor presence M06.9 Active 319950400 Problem Body mass index (BMI) of 40.0-44.9 in adult Z68.41 Active 289391704 Problem Chronic GERD K21.9 Active 227753598 Problem Essential hypertension I10 Active 20745536 Problem Anxiety F41.9 Active 53370042 Problem Current moderate episode of major depressive disorder without prior episode F32.1 Active 63647096 Problem Fibromyalgia M79.7 Active 654814206 ALLERGIES No Information ENCOUNTERS Encounter Location Date Diagnosis [facility] [address] [id number] [place] [id number] Dec, [address] [id number] [place] [id number] Nov, [facility] [address] [id number] [place] [id number] Oct, [facility] [address] [id number] [place] [id number] Oct, [facility] [address] [id number] [id number] Sep, COPD mixed type J44.9 [facility] [address] [place] [id number] Aug, Chronic GERD K21.9 ; Essential hypertension I10 ; SOB (shortness of breath ) on exertion R06.02 ; Morbid (severe) obesity due to excess calories E66.01 ; Body mass index (BMI) of 40.0-44.9 in adult Z68.41 and BMI 40.0-44.9, adult Z68.[address] [facility] [address] [facility] [id number] [id number] Aug, COPD mixed type J44.9 [address] [id number] Aug, SOB (shortness of breath) on exertion R06.[address] [place] [address] [id number] Aug, [place] [address] [place] [address] [id number] Aug, BMI 40.0-44.9, adult Z68.41 ; Essential hypertension I10 ; Suspected chronic obstructive pulmonary disease based on initial evaluation J44.9 and SOB (shortness of breath) on exertion R06.02 [facility] [address] [place] [address] [id number] July, [place] [id number] [place] [address] [id number] July, Suspected chronic obstructive pulmonary disease based on initial evaluation J44.9 and Cough R05 [address] [place] [address] [id number] July, Essential hypertension I10 ; COPD mixed type J44.9 ; Suspected chronic obstructive pulmonary disease based on initial evaluation J44.9 ; Cough R05 ; Encounter for immunization Z23 and BMI 40.0-44.9, adult Z68.41 [facility] [address] [place] [address] [id number] Jun, Essential hypertension I10 ; Chronic GERD K21.9 ; SOB (shortness of breath ) on exertion R06.02 ; Suspected chronic obstructive pulmonary disease based on initial evaluation J44.9 and Elevated blood pressure reading R03.0 [address] [id number] May, [address] [place] [address] [id number] Apr, Mixed hyperlipidemia E78.2 ; Current moderate episode of major depressive disorder without prior episode F32.1 ; Anxiety F41.9 ; Fibromyalgia M79.7 ; Essential hypertension I10 ; Sleep difficulties G47.9 ; Chronic GERD K21.9 ; BMI 40.0-44.9, adult Z68.41 ; Rheumatoid arthritis involving multiple sites, unspecified rheumatoid factor presence M06.9 and Cough R05 [address] [place] [address] [id number] Mar, BMI 40.0-44.9, adult Z68.41 and Influenza J11.1 [address] [place] [address] [id number] Mar, Current moderate episode of major depressive [...] pain G89.29 and BMI 40.0-44.9, adult Z68.41 [address] [place] [address] [id number] Mar, IMMUNIZATIONS No Known Immunizations SOCIAL HISTORY Never Assessed REASON FOR VISIT Medication refill request PLAN OF CARE VITAL SIGNS MEDICATIONS Medication Instructions Dosage Frequency Start Date End Date Duration Status Losartan Potassium 100 MG 1 tablet Once a day Orally 0 0 Active RESULTS No Results PROCEDURES No Known [...]
--- OUTSIDE RECORDS SUMMARY | 2018-02-22 10:15 | XMS REPORT ---
Author Author ALEK MCKENZIE Organization [facility] Address [address] [place] [address] Care Team Providers Care Account Resolution Specialist Name Role Phone ALEK MCKENZIE Unavailable PROBLEMS Type Condition ICD9-CM Code [id number] Code Onset Dates Condition Status SNOMED Code Problem Other chronic pain G89.29 Active 10005714 Problem Morbid (severe) obesity due to excess calories E66.01 Active 96829238338800 Problem Mixed hyperlipidemia E78.2 Active 958210294 Problem COPD mixed type J44.9 Active 81037171 Problem Suspected chronic obstructive pulmonary disease based on initial evaluation J44.9 Active 34673395 Problem Sleep difficulties G47.9 Active 374135031 Problem Poor balance R26.89 Active 657874698 Problem Rheumatoid arthritis involving multiple sites, unspecified rheumatoid factor presence M06.9 Active 645559943 Problem Body mass index (BMI) of 40.0-44.9 in adult Z68.41 Active 521343179 Problem Chronic GERD K21.9 Active 683878510 Problem Essential hypertension I10 Active 96667213 Problem Anxiety F41.9 Active 65562940 Problem Current moderate episode of major depressive disorder without prior episode F32.1 Active 73308764 Problem Fibromyalgia M79.7 Active 398417509 ALLERGIES No Known Allergies ENCOUNTERS Encounter Location Date Diagnosis [facility] [address] [facility] [id number] [id number] Sep, COPD mixed type J44.9 [facility] [address] [facility] [id number] [id number] Aug, Chronic GERD K21.9 and Essential hypertension I10 [facility] [address] [facility] [id number][place] [id number] Aug, COPD mixed type J44.[address] [id number] [id number] Aug, SOB (shortness of breath) on exertion R06.[address] [place] [address] [id number] Aug, [place] [address] [place] [address] [id number] Aug, BMI 40.0-44.9, adult Z68.41 ; Essential hypertension I10 ; Suspected chronic obstructive pulmonary disease based on initial evaluation J44.9 and SOB (shortness of breath) on exertion R06.02 [place] [address] [place] [address] [id number] July, [place] [address] [place] [address] [id number] July, Suspected chronic obstructive pulmonary disease based on initial evaluation J44.9 and Cough R05 [place] [address] [place] [address] [id number] July, Essential hypertension I10 ; COPD mixed type J44.9 ; Suspected chronic obstructive pulmonary disease based on initial evaluation J44.9 ; Cough R05 ; Encounter for immunization Z23 and BMI 40.0-44.9, adult Z68.41 [place] [address] [place] [address] [id number] Jun, Essential hypertension I10 ; Chronic GERD K21.9 ; SOB (shortness of breath ) on exertion R06.02 ; Suspected chronic obstructive pulmonary disease based on initial evaluation J44.9 and Elevated blood pressure reading R03.0 [place] [address] [place] [address] [id number] May, [place] [address] [place] [address] [id number] Apr, Mixed hyperlipidemia E78.2 ; Current moderate episode of major depressive disorder without prior episode F32.1 ; Anxiety F41.9 ; Fibromyalgia M79.7 ; Essential hypertension I10 ; Sleep difficulties G47.9 ; Chronic GERD K21.9 ; BMI 40.0-44.9, adult Z68.41 ; Rheumatoid arthritis involving multiple sites, unspecified rheumatoid factor presence M06.9 and Cough R05 [place] [address] [place] [address] [id number] Mar, BMI 40.0-44.9, adult Z68.41 and Influenza J11.[address] [id number][place] [id number] Mar, Current moderate episode of major depressive [...] pain G89.29 and BMI 40.0-44.9, adult Z68.[address] [id number], [place] [id number] Mar, IMMUNIZATIONS No Known Immunizations SOCIAL HISTORY Never Assessed REASON FOR VISIT Blood Pressure check up, needs refill on meds---AHMET more PLAN OF CARE Activity Details Follow Up 2 Weeks Reason:HTN/SOB VITAL SIGNS Height 67.5 in 2017-06-22 Weight 259 lbs 2017-06-22 Temperature 98.7 degrees Fahrenheit 2017-06-22 Heart Rate 95 bpm 2017-06-22 Respiratory Rate 18 2017-06-22 BMI 39.96 kg/m2 2017-06-22 Blood pressure systolic 150 mmHg 2017-06-22 Blood pressure diastolic 86 mmHg 2017-06-22 MEDICATIONS Medication Instructions Dosage Frequency Start Date End Date Duration Status BusPIRone HCl 10 mg Orally 3 times a day 1 tablet 8h Active Nexium 20 MG Orally Once a day 1 capsule 24h Active Losartan Potassium 100 MG Orally Once a day 1 tablet 24h Active Melatonin 5 MG Orally Once a day 1 tablet at bedtime as needed with food 24h Active Gabapentin 800 MG Orally 4 times a day 1 tablet 6h Active Effexor 50 MG Orally Once a day 1 tablet with food 24h Active Amlodipine Besylate 5 mg Orally Once a day 1 tablet 24h Active Aspirin 325 MG Orally Once a day 1 tablet 24h Active ProAir RespiClick 108 (90 Base) MCG/ACT Inhalation every 4-6 hrs 2 puffs as needed Apr, 0 days Active Naproxen 500 MG Orally every 12 hrs 1 tablet with food or milk as needed 12h Active Bevespi Aerosphere 9-4.8 MCG/ACT Inhalation Twice a day 2 puffs 12h Jun Active Hydrochlorothiazide 50 MG Orally Once a day 1 tablet in the morning 24h Active Effexor 75 MG Orally Once a day 1 tablet with food 24h Active Remeron 15 MG Orally Once a day 1 tablet at bedtime 24h Active RESULTS No Results PROCEDURES No Known [...]
--- OUTSIDE RECORDS SUMMARY | 2018-02-22 10:15 | XMS REPORT ---
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 Active 60338777 Problem Suspected chronic obstructive pulmonary disease based on initial evaluation J44.9 Active 31688391 Problem Sleep difficulties G47.9 Active 694191389 Problem Poor balance R26.89 Active 863843721 Problem Rheumatoid arthritis involving multiple sites, unspecified rheumatoid factor presence M06.9 Active 416363892 Problem Body mass index (BMI) of 40.0-44.9 in adult Z68.41 Active 822256905 Problem Chronic GERD K21.9 Active 994331951 Problem Essential hypertension I10 Active 14516572 Problem Anxiety F41.9 Active 83193076 Problem Current moderate episode of major depressive disorder without prior episode F32.1 Active 75918678 Problem Fibromyalgia M79.7 Active 122250539 ALLERGIES No Information ENCOUNTERS Encounter Location Date Diagnosis [facility] [address] [id number] [place] [id number] Dec, [facility] [address] [id number] [place] [id number] Nov, [facility] [address] [id number] [place] [id number] Nov, [facility] [address] [id number] [place] [id number] Oct, Acute pain of right knee M25.561 [address] [id number] Oct, [place] [id number] [place] [id number] Oct, Essential hypertension I10 ; Mixed hyperlipidemia E78.2 ; Current moderate episode of major depressive disorder without prior episode F32.1 ; Anxiety F41.9 ; Chronic GERD K21.9 ; Acute pain of right knee M25.561 ; Fibromyalgia M79.7 ; COPD mixed type J44.9 ; Cough R05 ; BMI 40.0-44.9, adult Z68.41 and Sleep difficulties G47.[address] [id number] [place] [id number] Oct, [place] [id number] [place] [address] [id number] Sep, COPD mixed type J44.9 [address] [place] [address] [id number] Aug, Chronic GERD K21.9 ; Essential hypertension I10 ; SOB (shortness of breath ) on exertion R06.02 ; Morbid (severe) obesity due to excess calories E66.01 ; Body mass index (BMI) of 40.0-44.9 in adult Z68.41 and BMI 40.0-44.9, adult Z68.41 [address] [id number] Aug, COPD mixed type J44.[address] [id number] CITY, [place] [id number] Aug, SOB (shortness of breath) on exertion R06.[address] [place] [address] [id number] Aug, [place] [id number] [place] [address] [id number] Aug, BMI 40.0-44.9, adult Z68.41 ; Essential hypertension I10 ; Suspected chronic obstructive pulmonary disease based on initial evaluation J44.9 and SOB (shortness of breath) on exertion R06.02 [id number] [id number] July, [address] [place] [address] [id number] July, Suspected chronic obstructive pulmonary disease based on initial evaluation J44.9 and Cough R05 [address] [place] [address] [id number] July, Essential hypertension I10 ; COPD mixed type J44.9 ; Suspected chronic obstructive pulmonary disease based on initial evaluation J44.9 ; Cough R05 ; Encounter for immunization Z23 and BMI 40.0-44.9, adult Z68.41 [address] [place] [address] [id number] Jun, Essential hypertension I10 ; Chronic GERD K21.9 ; SOB (shortness of breath ) on exertion R06.02 ; Suspected chronic obstructive pulmonary disease based on initial evaluation J44.9 and Elevated blood pressure reading R03.0 [place] [id number] [place] [address] [id number] May, [place] [id number] [place] [address] [id number] Apr, Mixed hyperlipidemia E78.2 ; Current moderate episode of major depressive disorder without prior episode F32.1 ; Anxiety F41.9 ; Fibromyalgia M79.7 ; Essential hypertension I10 ; Sleep difficulties G47.9 ; Chronic GERD K21.9 ; BMI 40.0-44.9, adult Z68.41 ; Rheumatoid arthritis involving multiple sites, unspecified rheumatoid factor presence M06.9 and Cough R05 [place] [id number] [id number] Mar, BMI 40.0-44.9, adult Z68.41 and Influenza J11.[address] [place] [address] [id number] Mar, Current moderate episode of major depressive [...] pain G89.29 and BMI 40.0-44.9, adult Z68.[address] [id number] [place] [id number] Mar, IMMUNIZATIONS No Known Immunizations SOCIAL HISTORY Never Assessed REASON FOR VISIT Losartan Refill PLAN OF CARE VITAL SIGNS MEDICATIONS Medication [...]
--- OUTSIDE RECORDS SUMMARY | 2018-02-22 10:15 | XMS REPORT ---
Author Author ALEK MCKENZIE Organization [facility] Address [address] [place] [address] Care Team Providers Care Electric Spot Welder Name Role Phone ALEK MCKENZIE Unavailable PROBLEMS Type Condition ICD9-CM Code VVZ25-BH Code Onset Dates Condition Status SNOMED Code Problem Other chronic pain G89.29 Active 89753418 Problem Morbid (severe) obesity due to excess calories E66.01 Active 26051132822054 Problem Mixed hyperlipidemia E78.2 Active 948320557 Problem COPD mixed type J44.9 Active 03403106 Problem Suspected chronic obstructive pulmonary disease based on initial evaluation J44.9 Active 54850562 Problem Sleep difficulties G47.9 Active 613237000 Problem Poor balance R26.89 Active 358527923 Problem Rheumatoid arthritis involving multiple sites, unspecified rheumatoid factor presence M06.9 Active 010472209 Problem Body mass index (BMI) of 40.0-44.9 in adult Z68.41 Active 341823214 Problem Chronic GERD K21.9 Active 351017793 Problem Essential hypertension I10 Active 28577443 Problem Anxiety F41.9 Active 94782150 Problem Current moderate episode of major depressive disorder without prior episode F32.1 Active 18324336 Problem Fibromyalgia M79.7 Active 906882428 ALLERGIES No Known Allergies ENCOUNTERS Encounter Location Date Diagnosis [address] [id number] [place] [id number] Dec, [address] [id number], [place] [id number] Nov, [facility] [address] [id number], [place] [id number] Oct, [facility] [address] [id number], [place] [id number] Oct, Essential hypertension I10 ; Mixed hyperlipidemia E78.2 ; Current moderate episode of major depressive disorder without prior episode F32.1 ; Anxiety F41.9 ; Chronic GERD K21.9 ; Acute pain of right knee M25.561 ; Fibromyalgia M79.7 ; COPD mixed type J44.9 ; Cough R05 ; BMI 40.0-44.9, adult Z68.41 and Sleep difficulties G47.[address] [id number], [place] [id number] Oct, [facility] [address] [place] [address] [id number] Sep, COPD mixed type J44.9 [place] [id number] [place] [address] [id number] Aug, Chronic GERD K21.9 ; Essential hypertension I10 ; SOB (shortness of breath ) on exertion R06.02 ; Morbid (severe) obesity due to excess calories E66.01 ; Body mass index (BMI) of 40.0-44.9 in adult Z68.41 and BMI 40.0-44.9, adult Z68.41 [address] [place] [address] [id number] Aug, COPD mixed type J44.[address] [id number], [place] [id number] Aug, SOB (shortness of breath) on exertion R06.02 [address] [place] [address] [id number] Aug, [place] [id number] [place] [address] [id number] Aug, BMI 40.0-44.9, adult Z68.41 ; Essential hypertension I10 ; Suspected chronic obstructive pulmonary disease based on initial evaluation J44.9 and SOB (shortness of breath) on exertion R06.02 [address] [place] [address] [id number] July, [address] [place] [address] [id number] July, Suspected chronic obstructive pulmonary disease based on initial evaluation J44.9 and Cough R05 [place] [id number] [place] [address] [id number] July, Essential hypertension I10 ; COPD mixed type J44.9 ; Suspected chronic obstructive pulmonary disease based on initial evaluation J44.9 ; Cough R05 ; Encounter for immunization Z23 and BMI 40.0-44.9, adult Z68.41 [address] [place] [address] [id number] Jun, Essential hypertension I10 ; Chronic GERD K21.9 ; SOB (shortness of breath ) on exertion R06.02 ; Suspected chronic obstructive pulmonary disease based on initial evaluation J44.9 and Elevated blood pressure reading R03.0 [place] [id number] [place] [address] [id number] May, [place] [id number] [place] [address] [id number] Apr, Mixed hyperlipidemia E78.2 ; Current moderate episode of major depressive disorder without prior episode F32.1 ; Anxiety F41.9 ; Fibromyalgia M79.7 ; Essential hypertension I10 ; Sleep difficulties G47.9 ; Chronic GERD K21.9 ; BMI 40.0-44.9, adult Z68.41 ; Rheumatoid arthritis involving multiple sites, unspecified rheumatoid factor presence M06.9 and Cough R05 [address] [place] [address] [id number] Mar, BMI 40.0-44.9, adult Z68.41 and Influenza J11.1 [address] [place] [address] [id number] Mar, Current moderate episode of major depressive [...] pain G89.29 and BMI 40.0-44.9, adult Z68.41 [place] [id number] [place] [address] [place] [id number] Mar, IMMUNIZATIONS No Known Immunizations SOCIAL HISTORY Never Assessed REASON FOR VISIT 1 mo f/u on COPD--AHMET Jessica PLAN OF CARE Activity Details Follow Up 4 Weeks and pending cxr and pft Reason: VITAL SIGNS Height 67.5 in 2017-08-06 Weight 260.0 lbs 2017-08-06 Temperature 98.6 degrees Fahrenheit 2017-08-06 Heart Rate 92 bpm 2017-08-06 Respiratory Rate 28 2017-08-06 Oximetry 96 % 2017-08-06 BMI 40.12 kg/m2 2017-08-06 Blood pressure systolic 118 mmHg 2017-08-06 Blood pressure diastolic 68 mmHg 2017-08-06 MEDICATIONS Medication Instructions Dosage Frequency Start Date End Date Duration Status Hydrochlorothiazide 50 MG Orally Once a day 1 tablet in the morning 24h 0 Active Nexium 20 MG Orally Once a day 1 capsule 24h Active Singulair 10 mg Orally Once a day 1 tablet in the evening 24h July, 0 days Active Amlodipine Besylate 5 mg Orally Once a day 1 tablet 24h 0 Active Losartan Potassium 100 MG 1 tablet Once a day Orally 0 0 Active Effexor 75 MG Orally Once a day 1 tablet with food 24h Not-Taking Aspirin 325 MG Orally Once a day 1 tablet 24h Active Naproxen 500 MG Orally every 12 hrs 1 tablet with food or milk as needed 12h Active Gabapentin 800 MG Orally 4 times a day 1 tablet 6h Active Melatonin 5 MG Orally Once a day 1 tablet at bedtime as needed with food 24h Active Effexor 50 MG Orally Once a day 1 tablet with food 24h Active ProAir RespiClick 108 (90 Base) MCG/ACT Inhalation every 4-6 hrs 2 puffs as needed Apr, 0 days Active Symbicort 160-4.5 MCG/ACT Inhalation Twice a day 2 puffs 12h Aug, Aug, 0 days Active BusPIRone HCl 10 mg Orally 3 times a day 1 tablet 8h Active Remeron 15 MG Orally Once a [...] 1996 Hospitalization History Surgery(s)/Childbirth(s) only Hospitalization History [facility] 1989
--- OUTSIDE RECORDS SUMMARY | 2018-02-22 10:15 | XMS REPORT ---
Author Author ALEK MCKENZIE Organization [facility] Address [address] [place] [address] Care Team Providers Care Ambulatory Care Name Role Phone ALEK MCKENZIE Unavailable PROBLEMS Type Condition ICD9-CM Code XKB50-SE Code Onset Dates Condition Status SNOMED Code Problem Other chronic pain G89.29 Active 56054724 Problem Morbid (severe) obesity due to excess calories E66.01 Active 17593994575788 Problem Mixed hyperlipidemia E78.2 Active 850707485 Problem COPD mixed type J44.9 Active 31507335 Problem Suspected chronic obstructive pulmonary disease based on initial evaluation J44.9 Active 60429330 Problem Sleep difficulties G47.9 Active 596213247 Problem Poor balance R26.89 Active 343464999 Problem Rheumatoid arthritis involving multiple sites, unspecified rheumatoid factor presence M06.9 Active 377616637 Problem Body mass index (BMI) of 40.0-44.9 in adult Z68.41 Active 870115053 Problem Chronic GERD K21.9 Active 079249851 Problem Essential hypertension I10 Active 65285710 Problem Anxiety F41.9 Active 92174918 Problem Current moderate episode of major depressive disorder without prior episode F32.1 Active 82700661 Problem Fibromyalgia M79.7 Active 018978981 ALLERGIES No Information ENCOUNTERS Encounter Location Date Diagnosis [facility] [address] [id number] [place] [id number] Dec, [facility] [address] [id number] [place] [id number] Nov, [facility] [address] [id number] [place] [id number] Nov, [facility] [address] [id number] [place] [id number] Oct, Acute pain of right knee M25.561 [address] [id number] Oct, [place] [id number] [place] [id number] Oct, Essential hypertension I10 ; Mixed hyperlipidemia E78.2 ; Current moderate episode of major depressive disorder without prior episode F32.1 ; Anxiety F41.9 ; Chronic GERD K21.9 ; Acute pain of right knee M25.561 ; Fibromyalgia M79.7 ; COPD mixed type J44.9 ; Cough R05 ; BMI 40.0-44.9, adult Z68.41 and Sleep difficulties G47.[address] [id number] [id number] Oct, [place] [id number] [place] [id number] Sep, COPD mixed type J44.9 [address] [place] [id number] Aug, Chronic GERD K21.9 ; Essential hypertension I10 ; SOB (shortness of breath ) on exertion R06.02 ; Morbid (severe) obesity due to excess calories E66.01 ; Body mass index (BMI) of 40.0-44.9 in adult Z68.41 and BMI 40.0-44.9, adult Z68.41 [address] [id number] Aug, COPD mixed type J44.[address] [id number] [id number] Aug, SOB (shortness of breath) on exertion R06.02 [address] [place] [id number] Aug, [place] [id number] [place] [id number] Aug, BMI 40.0-44.9, adult Z68.41 ; Essential hypertension I10 ; Suspected chronic obstructive pulmonary disease based on initial evaluation J44.9 and SOB (shortness of breath) on exertion R06.02 [place] [id number] [id number] July, [address] [place] [id number] July, Suspected chronic obstructive pulmonary disease based on initial evaluation J44.9 and Cough R05 [address] [place] [address] [id number] July, Essential hypertension I10 ; COPD mixed type J44.9 ; Suspected chronic obstructive pulmonary disease based on initial evaluation J44.9 ; Cough R05 ; Encounter for immunization Z23 and BMI 40.0-44.9, adult Z68.41 [address] [place] [address] [id number] Jun, Essential hypertension I10 ; Chronic GERD K21.9 ; SOB (shortness of breath ) on exertion R06.02 ; Suspected chronic obstructive pulmonary disease based on initial evaluation J44.9 and Elevated blood pressure reading R03.0 [place] [id number] [place] [id number] May, [place] [address] [place] [id number] Apr, Mixed hyperlipidemia E78.2 ; Current moderate episode of major depressive disorder without prior episode F32.1 ; Anxiety F41.9 ; Fibromyalgia M79.7 ; Essential hypertension I10 ; Sleep difficulties G47.9 ; Chronic GERD K21.9 ; BMI 40.0-44.9, adult Z68.41 ; Rheumatoid arthritis involving multiple sites, unspecified rheumatoid factor presence M06.9 and Cough R05 [place] [id number] [id number] Mar, BMI 40.0-44.9, adult Z68.41 and Influenza J11.1 [address] [place] [id number] Mar, Current moderate episode of major depressive [...] pain G89.29 and BMI 40.0-44.9, adult Z68.[address] [id number] [place] [id number] Mar, IMMUNIZATIONS No Known Immunizations SOCIAL HISTORY Never Assessed REASON FOR VISIT chest bferrisma PLAN OF CARE VITAL SIGNS MEDICATIONS Unknown Medications RESULTS Name Result Date Reference Range Xray : Chest 2 View (IN HOUSE) 2017-09-01 PROCEDURES Procedure Date Ordered Result Body Site X-RAY EXAM CHEST 2 VIEWS September 01, 2017 INSTRUCTIONS MEDICATIONS ADMINISTERED No Known Medications [...]
--- OUTSIDE RECORDS SUMMARY | 2018-02-22 10:16 | XMS REPORT ---
Author Author ALEK MCKENZIE Organization [facility] Address [address] [place] [address] Care Team Providers Care Thermocouple Tester Name Role Phone ALEK MCKENZIE Unavailable PROBLEMS Type Condition ICD9-CM Code EHP50-NG Code Onset Dates Condition Status SNOMED Code Problem Other chronic pain G89.29 Active 49071608 Problem Morbid (severe) obesity due to excess calories E66.01 Active 93275054749243 Problem Mixed hyperlipidemia E78.2 Active 980679695 Problem COPD mixed type J44.9 Active 54251807 Problem Suspected chronic obstructive pulmonary disease based on initial evaluation J44.9 Active 32653405 Problem Sleep difficulties G47.9 Active 848995079 Problem Poor balance R26.89 Active 741142534 Problem Rheumatoid arthritis involving multiple sites, unspecified rheumatoid factor presence M06.9 Active 404234398 Problem Body mass index (BMI) of 40.0-44.9 in adult Z68.41 Active 340885745 Problem Chronic GERD K21.9 Active 292159085 Problem Essential hypertension I10 Active 87811022 Problem Anxiety F41.9 Active 26660904 Problem Current moderate episode of major depressive disorder without prior episode F32.1 Active 06744054 Problem Fibromyalgia M79.7 Active 196146935 ALLERGIES No Known Allergies ENCOUNTERS Encounter Location Date Diagnosis [facility] [address] [facility] [id number] [id number] Aug, [address] [id number] [id number] Aug, BMI 40.0-44.9, adult Z68.41 ; Essential hypertension I10 ; Suspected chronic obstructive pulmonary disease based on initial evaluation J44.9 and SOB (shortness of breath) on exertion R06.[address] [id number] [id number] July, [place] [id number] [place] [id number] July, Suspected chronic obstructive pulmonary disease based on initial evaluation J44.9 and Cough R05 [place] [id number] [place] [id number] July, Essential hypertension I10 ; COPD mixed type J44.9 ; Suspected chronic obstructive pulmonary disease based on initial evaluation J44.9 ; Cough R05 ; Encounter for immunization Z23 and BMI 40.0-44.9, adult Z68.41 [place] [id number] [place] [id number] Jun, Essential hypertension I10 ; Chronic GERD K21.9 ; SOB (shortness of breath ) on exertion R06.02 ; Suspected chronic obstructive pulmonary disease based on initial evaluation J44.9 and Elevated blood pressure reading R03.0 [place] [id number] [place] [id number] May, [place] [id number] [place] [id number] Apr, Mixed hyperlipidemia E78.2 ; Current moderate episode of major depressive disorder without prior episode F32.1 ; Anxiety F41.9 ; Fibromyalgia M79.7 ; Essential hypertension I10 ; Sleep difficulties G47.9 ; Chronic GERD K21.9 ; BMI 40.0-44.9, adult Z68.41 ; Rheumatoid arthritis involving multiple sites, unspecified rheumatoid factor presence M06.9 and Cough R05 [place] [id number] [place] [id number] Mar, BMI 40.0-44.9, adult Z68.41 and Influenza J11.[address] [place] [id number] Mar, Current moderate episode of major depressive [...] G89.29 and BMI 40.0-44.9, adult Z68.[address] [id number] [place] [id number] Mar, IMMUNIZATIONS No Known Immunizations SOCIAL HISTORY Never Assessed REASON FOR VISIT PMH updated. Mac LEO PLAN OF CARE VITAL SIGNS MEDICATIONS Medication Instructions Dosage Frequency Start Date End Date Duration Status Losartan Potassium 100 MG Orally Once a day 1 tablet 24h Active Lexapro 20 mg Orally Once a day 1 tablet 24h Active Nexium 40 MG Orally Once a day 1 capsule 24h Not-Taking Naproxen 500 MG Orally every 12 hrs 1 tablet with food or milk as needed 12h Active BusPIRone HCl 10 mg Orally 3 times a day 1 tablet 8h Active Melatonin 5 MG Orally Once a day 1 tablet at bedtime as needed with food 24h Active Aspirin 325 MG Orally Once a day 1 tablet 24h Active Gabapentin 800 MG Orally 4 times a day 1 tablet 6h Active Trazodone HCl 50 MG Orally Once a day 1 tablet at bedtime as needed 24h Active Amlodipine Besylate 5 MG Orally Once a day 1 tablet 24h Active RESULTS No Results PROCEDURES No Known procedures INSTRUCTIONS MEDICATIONS ADMINISTERED No Known Medications MEDICAL (GENERAL) HISTORY Type Description Date Medical History fibromyalgia Medical History hypertension Medical History rheumatoid arthritis Medical History depression Medical History anxiety Medical History irritable bowel syndrome Medical History restless leg syndrome Medical History chronic obstructive pulmonary disease (COPD) Surgical History Total hysterectomy, abdominal 1992 Surgical History tonsillectomy 1963 Surgical History cholecystectomy 1994 Surgical History arthroscopoy right knee 1996 Hospitalization History Surgery(s)/Childbirth(s) only Hospitalization History concussion 1988
--- OUTSIDE RECORDS SUMMARY | 2018-02-22 10:16 | XMS REPORT ---
Author Author ALEK MCKENZIE Organization [facility] Address [address] [place] [address] Care Team Providers Care Naphthalene Operator Name Role Phone ALEK MCKENZIE Unavailable PROBLEMS Type Condition ICD9-CM Code NHS01-QT Code Onset Dates Condition Status SNOMED Code Problem Other chronic pain G89.29 Active 93678336 Problem Morbid (severe) obesity due to excess calories E66.01 Active 00604822390691 Problem Mixed hyperlipidemia E78.2 Active 422896863 Problem COPD mixed type J44.9 Active 52112640 Problem Suspected chronic obstructive pulmonary disease based on initial evaluation J44.9 Active 13678399 Problem Sleep difficulties G47.9 Active 472398753 Problem Poor balance R26.89 Active 946851442 Problem Rheumatoid arthritis involving multiple sites, unspecified rheumatoid factor presence M06.9 Active 849731553 Problem Body mass index (BMI) of 40.0-44.9 in adult Z68.41 Active 761260080 Problem Chronic GERD K21.9 Active 336575220 Problem Essential hypertension I10 Active 66201836 Problem Anxiety F41.9 Active 06029651 Problem Current moderate episode of major depressive disorder without prior episode F32.1 Active 76085765 Problem Fibromyalgia M79.7 Active 850218954 ALLERGIES No Information ENCOUNTERS Encounter Location Date Diagnosis [facility] [address] [facility] [id number] [id number] Aug, Chronic GERD K21.9 and Essential hypertension I10 [address] [id number] [id number] Aug, COPD mixed type J44.[address] [place] [id number] [place] [id number] Aug, SOB (shortness of breath) on exertion R06.02 [facility] [address] [facility] [id number] [place] [id number] Aug, [address] [place] [id number] Aug, BMI 40.0-44.9, adult Z68.41 ; Essential hypertension I10 ; Suspected chronic obstructive pulmonary disease based on initial evaluation J44.9 and SOB (shortness of breath) on exertion R06.02 [address] [place] [address] [id number] July, [place] [id number] [place] [address] [id number] July, Suspected chronic obstructive pulmonary disease based on initial evaluation J44.9 and Cough R05 [place] [id number] [place] [address] [id number] July, Essential hypertension I10 ; COPD mixed type J44.9 ; Suspected chronic obstructive pulmonary disease based on initial evaluation J44.9 ; Cough R05 ; Encounter for immunization Z23 and BMI 40.0-44.9, adult Z68.41 [address] [place] [address] [id number] Jun, Essential hypertension I10 ; Chronic GERD K21.9 ; SOB (shortness of breath ) on exertion R06.02 ; Suspected chronic obstructive pulmonary disease based on initial evaluation J44.9 and Elevated blood pressure reading R03.0 [address] [place] [address] [id number] May, [place] [id number] [place] [address] [id number] Apr, Mixed hyperlipidemia E78.2 ; Current moderate episode of major depressive disorder without prior episode F32.1 ; Anxiety F41.9 ; Fibromyalgia M79.7 ; Essential hypertension I10 ; Sleep difficulties G47.9 ; Chronic GERD K21.9 ; BMI 40.0-44.9, adult Z68.41 ; Rheumatoid arthritis involving multiple sites, unspecified rheumatoid factor presence M06.9 and Cough R05 [address] [place] [address] [id number] Mar, BMI 40.0-44.9, adult Z68.41 and Influenza J11.[address] [id number] [place] [id number] Mar, Current moderate episode of major depressive [...] pain G89.29 and BMI 40.0-44.9, adult Z68.[address] [id number] [place], [place] [id number] Mar, IMMUNIZATIONS No Known Immunizations SOCIAL HISTORY Never Assessed REASON FOR VISIT Medication refill request PLAN OF CARE VITAL SIGNS MEDICATIONS Unknown [...]
[2018-02-22] MEDS ORDERED: HEParin (CATH LAB) 2,000 ML IV ONE (10:19)
[2018-02-22] MEDS ORDERED: LIDOCAINE 1% INJ 20 ML 20 ML VIAL ONE (10:19)
[2018-02-22] MEDS ORDERED: NS IV 1000 ML 1,000 ML ONE (10:19)
[2018-02-22] MEDS ORDERED: NS IV 1000 ML 1,000 ML IV SCH ×2 (10:30→13:08)
[2018-02-22 11:12] LABS: HEMOGLOBIN 12.6 G/DL (11.5-16.0); MEAN PLATELET VOLUME 10.5 FL (7.4-10.4); RED BLOOD COUNT 4.27 10^6/uL (4.35-5.85); RED CELL DISTRIBUTION WIDTH 13.4 % (10.0-14.5); WHITE BLOOD COUNT 5.8 10^3/uL (4.3-11.0)
[2018-02-22] MEDS ORDERED: ATOR20TA66 PO (11:14)
[2018-02-22] MEDS ORDERED: LOSA100T8 PO (11:14)
[2018-02-22] MEDS ORDERED: BUDE10.2 IH (11:14)
[2018-02-22] MEDS ORDERED: ESCI20TA PO (11:14)
[2018-02-22] MEDS ORDERED: AMLO5TAB7 PO (11:14)
[2018-02-22] MEDS ORDERED: NF-ESOM40C PO (11:14)
[2018-02-22] MEDS ORDERED: DULO60CA6 PO (11:14)
[2018-02-22] MEDS ORDERED: MELA3TAB PO (11:14)
[2018-02-22] MEDS ORDERED: GABA800T2 PO ×2 (11:14)
[2018-02-22] MEDS ORDERED: TRAM50TA2 PO (11:14)
[2018-02-22] MEDS ORDERED: ASPI-808 PO (11:14)
[2018-02-22] MEDS ORDERED: HYDR50TA3 PO (11:14)
[2018-02-22] MEDS ORDERED: TRAZ-189 PO (11:14)
[2018-02-22] MEDS ORDERED: MONT10TA21 PO (11:14)
[2018-02-22] MEDS ORDERED: NAPR-915 PO (11:14)
[2018-02-22] MEDS ORDERED: RT-ALBUINH IH (11:14)
[2018-02-22] MEDS ORDERED: CYAN10006 PO (11:15)
[2018-02-22] MEDS ORDERED: MULT-35 PO (11:15)
[2018-02-22] MEDS ORDERED: CHOL10007 PO (11:15)
[2018-02-22 11:25] LABS: INR 0.9 (0.8-1.4)
[2018-02-22 11:52] LABS: BILIRUBIN,TOTAL 0.4 MG/DL (0.1-1.0); CREATININE SERUM 0.99 MG/DL (0.60-1.30); POTASSIUM 4.5 MMOL/L (3.6-5.0)
[2018-02-22] MEDS ORDERED: fentaNYL INJECTION 100 MCG/2 ML AMP ONE (12:10)
[2018-02-22] MEDS ORDERED: MIDAZOLAM 5 MG/5 ML (VERSED) VIAL ONE (12:10)
--- NOTE | 2018-02-22 12:14 | Cardiac Procedure Note-CS/ASA ---
Pre-Procedure Note Pre-Op Procedure Note H&P Reviewed The H&P was reviewed, patient examined and no changes noted. Date H&P Reviewed: Feb 22, 2018 Time H&P Reviewed: 12:13 Conscious Sedation Pre-Proced Time 12:13 ASA Score 3 For ASA 3 and 4: Consider anesthesia and medical clearance. Also, for patients with a history of failed moderate sedation consider anesthesia. Airway Lungs Heart ASA score ASA 1: a normal healthy patient ASA 2: a patient with a mild systemic disease (mid diabetes, controlled hypertension, obesity ASA 3: a patient with a severe systemic disease that limits activity (angina , COPD, prior Myocardial infarction) ASA 4: a patient with an incapacitating disease that is a constant threat to life (CHF, renal failure) ASA 5: a moribund patient not expected to survive 24 hrs. (ruptured aneurysm) ASA 6: a declared brain patient whose organs are being harvested. For emergent operations, add the letter E after the classification Mallampati Classification Grade 3 Sedation Plan Analgesia, Amnesia, Plan communicated to team members, Discussed options with patient/fam, Discussed risks with patient/fam The patient is an appropriate candidate to undergo the planned procedure, sedation, and anesthesia. The patient immediately re-assessed prior to indication. REEMA AMEZCUA MD FACP FAC CCDS Feb 22, 2018 12:14
--- NOTE | 2018-02-22 13:13 | Discharge Inst-Post CATH ---
Discharge Inst-CATH/EP Post Cardiac Cath/EP D/C Inst Follow Up/Plan F/u with Dr Madera in 3-4 weeks CARDIAC CATH DISCHARGE INSTRUCTIONS *Hold Metformin for 48 hours post heart cath. ACTIVITY * Go Home directly and rest. * Limit activity of the leg (or wrist if it was used) for 7 days including aerobics, swimming, jogging, bicycling, etc. * Restrict stair-climbing for 7 days if possible, if not, climb up with your non -cath leg, then bring together on the same step. * Avoid lifting, pushing, pulling or excessive movement of the affected extremity for 7 days. * Customary sexual activity may be resumed after 2 days-use caution not to use a position that strains or causes pain to the affected extremity. * No driving for 24 hours. * NO SMOKING. * Avoid straining for bowel movements for 7 days. * Gentle walking on level ground is allowed. * Returning to work will depend on the type of procedure and the results. Your doctor will discuss this with you. CALL YOUR DOCTOR FOR ANY OF THE FOLLOWING: *If bleeding from the puncture site occurs- Apply gentle pressure to site with clean cloth and call your doctor or EMS. * If a knot or lump forms under the skin, increases in size, or causes pain. * If bruising appears to be worsening or moving further down your leg instead of disappearing. * Temperature above 101 F. CARE OF YOUR GROIN INCISION; * Bruising or purple discoloration of the skin near the puncture site is common. * You may shower only, no bathtub bathing for 5 days. Be careful to avoid slipping as your leg may feel stiff. * If a closure device was used on your femoral artery, please see the attached guide regarding care of the device and your leg. * Leave the dressing on, until removed by office staff. CARE OF YOUR WRIST INCISION; * Bruising or purple discoloration of the skin near the puncture site is common. * You may shower. * DO NOT submerge wrist. * Leave dressing on, until removed by office staff.. REEMA MADERA MD [facility] CCDS Feb 22, 2018 13:13
--- NOTE | 2018-02-22 13:13 | CARDIAC CATHETERIZATION ---
DATE OF SERVICE: 02/22/2018 CARDIAC CATHETERIZATION REPORT HISTORY: The patient is a 62-year-old lady, who has multiple coronary artery disease risk factors and who has been experiencing chest discomfort. A myocardial perfusion imaging study was indicative of apical ischemia. Cardiac catheterization was carried out today after having obtained an informed consent. PROCEDURE IN DETAIL: She was brought to the cardiac catheterization laboratory in a fasting state. Right groin was prepared and draped in the usual sterile fashion. Lidocaine 1% was used for local anesthesia. Modified Seldinger technique was used to advance a 5-Kazakh sheath in the right femoral artery. A 5-Kazakh JL4 catheter was used for left coronary angiography. A 5-Kazakh JR4 catheter was used for right coronary angiography. A 5-Kazakh pigtail catheter was used for left heart catheterization, left ventricular angiography. At the end of the procedure, angiography of the femoral artery was carried out through the sheath. Mynx was used to achieve hemostasis. She tolerated the procedure well. HEMODYNAMICS: Left ventricular end-diastolic pressure following coronary angiography was 17 mmHg. There was no significant pressure gradient on pullback across the aortic valve. The ascending aortic pressure was 114/75 with a mean of 90 mmHg. CORONARY ANGIOGRAPHY: Left main coronary artery is short. Left main coronary artery, left circumflex artery, left anterior descending artery, and right coronary artery are all free of angiographically significant disease. Right coronary artery is dominant. LEFT VENTRICULAR ANGIOGRAPHY: Left ventricular angiography was carried out in the right anterior oblique projection. Global left ventricular systolic function normal. No regional wall motion abnormality is seen. Left ventricular ejection fraction is approximately 60%. CONCLUSIONS: 1. No angiographically significant coronary artery disease. 2. Normal global left ventricular systolic function with ejection fraction of approximately 60%. 3. Mild elevation of left ventricular end-diastolic pressure. DISCUSSION AND RECOMMENDATIONS: Based on results of the study, chest discomfort does not appear to be of cardiac origin. Myocardial perfusion imaging appears to have been false positive. Continued risk factor modification is advised. Outpatient followup is advised. Job ID: [id number] DocumentID: [id number] Dictated Date: 02/22/2018 12:52:20 Tare Worker Date: 02/22/2018 13:12:32 Dictated By: REEMA AMEZCUA MD, MA, FACP, FACC,
--- NOTE | 2018-02-22 13:13 | Discharge Inst-Cardiology ---
Discharge Inst-Cardiac Discharge Medications Continued Medications: Albuterol Sulfate (Proair Hfa) 1 Puff Puff 2 PUFF IH QID PRN for SHORTNESS OF BREATH, PUFF 1 PUFF = 90 MCG Amlodipine Besylate (Amlodipine Besylate) 5 Mg Tablet 5 MG PO DAILY, TAB Aspirin (Aspirin) 325 Mg Tablet 325 MG PO Q72H, TAB Atorvastatin Calcium (Atorvastatin Calcium) 20 Mg Tablet 20 MG PO DAILY, TAB Budesonide/Formoterol Fumarate (Symbicort 160-4.5 Mcg Inhaler) 10.2 Gm Hfa.aer.ad 2 PUFF IH BID, INHALER Cholecalciferol (Vitamin D3) (Vitamin D3) 1,000 Unit Capsule 1000 UNIT PO DAILY, CAP Cyanocobalamin (Vitamin B-12) (Vitamin B-12) 1,000 Mcg Tablet 1000 MCG PO DAILY, TAB Duloxetine HCl (Cymbalta) 60 Mg Capsule.dr 60 MG PO DAILY, CAP Escitalopram Oxalate (Lexapro) 20 Mg Tablet 20 MG PO DAILY, TAB Esomeprazole Magnesium (Nexium) 40 Mg Cap 40 MG PO DAILY, CAP Gabapentin (Gabapentin) 800 Mg Tablet 400 MG PO DAILY, TAB Gabapentin (Gabapentin) 800 Mg Tablet 800 MG PO HS, TAB Hydrochlorothiazide (Hydrochlorothiazide) 50 Mg Tablet 50 MG PO DAILY PRN for SWELLILNG, TAB Losartan Potassium (Losartan Potassium) 100 Mg Tablet 100 MG PO DAILY, TAB Melatonin (Melatonin) 3 Mg Tablet 6 MG PO HS, TAB Montelukast Sodium (Singulair) 10 Mg Tablet 10 MG PO DAILY, TAB Multivitamin (Daily Multiple Vitamin) 1 Each Tablet 1 TAB PO DAILY, TAB Tramadol HCl (Tramadol HCl) 50 Mg Tablet 50 MG PO Q4H PRN for PAIN-MODERATE, TAB Trazodone HCl (Trazodone HCl) 50 Mg Tablet 50 MG PO HS, TAB Discontinued Medications: Naproxen (Naproxen) 500 Mg Tablet 500 MG PO BID, TAB REEMA AMEZCUA MD FACP FAC CCDS Feb 22, 2018 13:13
[2018-02-22] MEDS ORDERED: PATIENT MAY USE OWN MEDS, ALL PO SCH (13:15)
== END 2018-02-22 18:06 | disposition home or self-care (01) ==
LOC: CATH 10:10 → ICU 13:18 → CATH 18:06
PROVIDERS: ATTEND Internal Medicine Cardiovascular Disease
DX: R07.89 Other chest pain (principal); R06.09 Other forms of dyspnea; I10 Essential (primary) hypertension; E78.5 Hyperlipidemia, unspecified; J44.9 Chronic obstructive pulmonary disease, unspecified; K21.9 Gastro-esophageal reflux disease without esophagitis; F41.9 Anxiety disorder, unspecified; F32.9 Major depressive disorder, single episode, unspecified; E66.9 Obesity, unspecified; Z68.41 Body mass index [BMI] 40.0-44.9, adult; Z87.891 Personal history of nicotine dependence; Z79.82 Long term (current) use of aspirin; Z79.899 Other long term (current) drug therapy
CPT/HCPCS: 36415; 80053; 80061; 85027; 85610; 85730; 87081; 93458

== ENCOUNTER → 2018-03-10 | Outpatient (CLI) | payer OTHER ==
[~2018-03-10] MED LIST changes: +AMLO5TAB7 PO; +ASPI-808 PO; +ATOR20TA66 PO; +BUDE10.2 IH; +CHOL10007 PO; +CYAN10006 PO; +DULO60CA6 PO; +ESCI20TA PO; +GABA800T2 PO; +HYDR50TA3 PO; +IOHEXOL 350 MG/ML 100 ML (OMNIPAQUE 350) VIAL IV ONE; +LOSA100T8 PO; +MELA3TAB PO; +MONT10TA21 PO; +MULT-35 PO; +NAPR-915 PO; +NF-ESOM40C PO; +NS 100 ML (IVPB) BAG IV ONE; +RECEIVED CONTRAST (Hold Metformin) IV SCH; -REGADENOSON 0.4 MG/5 ML SYR (LEXISCAN) IV ONE; +RT-ALBUINH IH; +TRAM50TA2 PO; +TRAZ-189 PO
[2018-03-10 14:28] LABS: CREATININE SERUM 1.12 MG/DL (0.60-1.30)
--- NOTE | 2018-03-10 15:17 | Diagnostic Imaging Report ---
PROCEDURE: CT angiography of the chest with contrast. TECHNIQUE: Multiple contiguous axial images were obtained through the chest after uneventful bolus administration of intravenous contrast. 2D reconstructed CTA MIP acquisitions were also performed. INDICATION: Shortness of breath. FINDINGS: There are no prior CTA chest examinations available for comparison. The plain film examination of the chest performed on 01/21/2018 failed to show any sign of an acute cardiopulmonary abnormality. On this exam, there is no defect within the pulmonary arteries to indicate a pulmonary embolus. The aorta is not abnormally dilated, and there is no sign of a dissection. The heart size is within normal limits. There are no coronary artery calcifications evident. There is no mediastinal or hilar adenopathy. The thyroid gland where visualized is unremarkable. There is a small 4.5 mm noncalcified nodular density in the periphery of the right upper lobe (image 35/152). In this same region, there is a 1.8 mm subpleural density. I suspect these nodules are benign. Even so, a six-month followup CT chest exam would be recommended for further study. There is no discrete lung mass involving the left lung. There are faint patchy alveolar/interstitial infiltrates in the lingula and in the medial aspect of the right infrahilar region. These findings may be secondary to very mild pneumonia/atelectasis. There is no sign of a pleural effusion. The sections through the upper abdomen fail to show any sign of an acute abnormality. The appearance of the liver does suggest fatty metamorphosis. The gallbladder is also surgically absent. There is no obvious breast mass. The bone window show no evidence for a fracture or for a destructive lesion. IMPRESSION: 1. The faint patchy alveolar/interstitial infiltrates involving the lingula and right infrahilar region are suspicious for very mild pneumonia/atelectasis. Clinical followup is recommended. 2. There is no acute cardiopulmonary abnormality noted otherwise. In particular, there is no sign of a pulmonary embolus or of a dissection. 3. The small nodular densities in the right upper lung are most likely benign. Recommendations as above. 4. The appearance of the liver does suggest fatty metamorphosis. Dictated by: Dictated on workstation # [id number]
--- NOTE | 2018-03-10 15:29 | Diagnostic Imaging Report ---
INDICATION: Dyspnea. Bilateral lower extremity venous Doppler study was performed in the routine fashion with color flow Doppler and waveform analysis. FINDINGS: The common femoral veins, superficial femoral veins, popliteal veins and visualized portion of the tibial veins show normal compressibility and venous flow patterns. There is normal augmentation. IMPRESSION: No evidence of deep vein thrombosis in the major veins of both legs. Dictated by: Dictated on workstation # [id number]
== END ==
LOC: RAD 13:50
PROVIDERS: ATTEND Nurse Practitioner Family
DX: J44.9 Chronic obstructive pulmonary disease, unspecified (principal); F41.9 Anxiety disorder, unspecified; G47.50 Parasomnia, unspecified; G47.10 Hypersomnia, unspecified; M79.7 Fibromyalgia; J98.4 Other disorders of lung; Z90.49 Acquired absence of other specified parts of digestive tract; Z87.891 Personal history of nicotine dependence
CPT/HCPCS: 36415; 71275; 82565; 84520; 93970

== ENCOUNTER → 2018-03-23 | Outpatient (CLI) | payer OTHER ==
[~2018-03-23] MED LIST changes: -CATHETER FLUSH 10 ML SYR IV PRN; -IOHEXOL 350 MG/ML 100 ML (OMNIPAQUE 350) VIAL IV ONE; -NS 100 ML (IVPB) BAG IV ONE; -RECEIVED CONTRAST (Hold Metformin) IV SCH
== END | disposition home or self-care (01) ==
LOC: PREOP 06:05
PROVIDERS: ATTEND Internal Medicine Critical Care Medicine
DX: Z01.818 Encounter for other preprocedural examination (principal)

== ENCOUNTER → 2018-08-12 | Outpatient (CLI) | payer OTHER ==
[~2018-08-12] MED LIST changes: -AMLO5TAB7 PO; +AMLO5TAB9 PO; +GABA800T10 PO; -GABA800T2 PO; +LOSA100T57 PO; -LOSA100T8 PO; -TRAZ-189 PO; +TRAZ-222 PO
--- NOTE | 2018-08-16 11:28 | Diagnostic Imaging Report ---
EXAMINATION: Digital mammogram bilateral screening with 3D tomosynthesis and CAD. INDICATION: Screening. COMPARISON: There are no prior studies available for comparison at this time. PERSONAL HISTORY: There are no current complaints. FINDINGS: There are scattered fibroglandular densities in both breasts which could obscure a lesion. There is no primary or secondary sign of malignancy noted. IMPRESSION: 1. There is no evidence for malignancy. 2. The patient should have her annual bilateral screening mammogram on schedule in August 2019. ACR BI-RADS Category 1: Negative. Result letter will be mailed to the patient. Note: At least 10% of breast cancer is not imaged by mammography. Dictated by: Dictated on workstation # [id number]
== END ==
LOC: RAD 09:09
PROVIDERS: ATTEND Nurse Practitioner Family
DX: Z12.31 Encounter for screening mammogram for malignant neoplasm of breast (principal)
CPT/HCPCS: 77067

== ENCOUNTER → 2018-10-11 | Outpatient (CLI) | payer OTHER ==
[~2018-10-11] MED LIST changes: +CYAN-41 PO; -CYAN10006 PO
--- NOTE | 2018-10-11 14:58 | Diagnostic Imaging Report ---
PROCEDURE: CT chest without contrast. TECHNIQUE: Multiple contiguous axial images were obtained through the chest without the use of intravenous contrast. Auto Exposure Controls were utilized during the CT exam to meet ALARA standards for radiation dose reduction. INDICATION: Shortness of air and asthma as well as lung nodule, followup. COMPARISON: Correlation is made with prior CT chest from 03/10/2018. FINDINGS: No axillary lymphadenopathy is seen. No definite hilar or mediastinal mass is detected. No pericardial or pleural fluid is detected. 4 mm right upper lobe nodule is stable, image 14. Tiny subpleural nodule at the same level in the right upper lobe is also stable. No new pulmonary nodule or mass is detected. Lungs are clear on today's study. No infiltrate is detected. Central airways are patent. Upper abdomen is unremarkable. IMPRESSION: Stable right upper lobe pulmonary nodules when compared with exam from 03/10/2018. No pulmonary infiltrates are detected. No acute feature is identified. Dictated by: Dictated on workstation # [id number]
== END ==
LOC: RAD 13:29
PROVIDERS: ATTEND Nurse Practitioner Family
DX: J45.909 Unspecified asthma, uncomplicated (principal); G47.50 Parasomnia, unspecified; F41.9 Anxiety disorder, unspecified; G47.10 Hypersomnia, unspecified; M79.7 Fibromyalgia; Z87.891 Personal history of nicotine dependence
CPT/HCPCS: 71250

== ENCOUNTER → 2018-12-08 | Outpatient (CLI) | payer OTHER ==
--- NOTE | 2018-12-08 13:19 | Diagnostic Imaging Report ---
Right knee at 1017 hours. INDICATION: Fell, knee pain. 3 views are obtained. There are no prior studies available for comparison. FINDINGS: There is no fracture, dislocation or acute bony abnormality evident. There is mild narrowing of all 3 compartments of the knee joint. The soft tissues are unremarkable. IMPRESSION: 1. There is no evidence for an acute bony abnormality. 2. If there is clinical concern regarding internal derangement, then MRI would be recommended for further evaluation. Dictated by: Dictated on workstation # [id number]
== END ==
LOC: ORTHO 09:33
PROVIDERS: ATTEND Orthopaedic Surgery
DX: M17.11 Unilateral primary osteoarthritis, right knee (principal)
CPT/HCPCS: 73562

== ENCOUNTER 2018-12-20 10:45 | Outpatient (RCR) | payer OTHER ==
[2018-11-29 13:00] VITALS: BP 150/92
[2018-11-29 13:46] VITALS: BP 120/90
[2018-12-06 10:40] VITALS: BP 125/90
[2018-12-06 11:48] VITALS: BP 150/80
[2018-12-08 11:00] VITALS: BP 128/60
[2018-12-08 11:56] VITALS: BP 138/90
[2018-12-20 10:45] VITALS: BP 120/60
[2018-12-20 11:49] VITALS: BP 110/78
== END 2019-02-21 | disposition home or self-care (01) ==
LOC: PULM 10:45
PROVIDERS: ATTEND Nurse Practitioner Family
DX: J45.909 Unspecified asthma, uncomplicated (principal); F41.9 Anxiety disorder, unspecified; G47.50 Parasomnia, unspecified; G47.33 Obstructive sleep apnea (adult) (pediatric); G47.10 Hypersomnia, unspecified; R91.1 Solitary pulmonary nodule; Z87.891 Personal history of nicotine dependence
CPT/HCPCS: 99211

== ENCOUNTER → 2019-03-21 | Outpatient (CLI) | payer OTHER ==
[~2019-03-21] MED LIST changes: -MELA3TAB PO; +MELA3TAB65 PO; -TRAM50TA2 PO; -TRAZ-222 PO; +TRM50T PO; +TRZ50T PO
== END ==
LOC: ORTHO 13:06
PROVIDERS: ATTEND Orthopaedic Surgery
DX: M17.11 Unilateral primary osteoarthritis, right knee (principal)

== ENCOUNTER 2019-04-05 14:22 | Outpatient (RCR) | payer OTHER ==
--- NOTE | 2019-03-29 08:39 | NUR ---
PT SCHEDULED FOR PULMONARY REHAB EVALUATION; LOOKED UP FILE TO SEE IF CURRENT PFT IN RECORDS (FOR EVAL) AND TO GET MAILING ADDRESS TO SEND PAPERWORK.
[~2019-04-05 14:22] MED LIST changes: +MELA3TAB39 PO; -MELA3TAB65 PO
== END 2019-07-04 | disposition home or self-care (01) ==
LOC: PULM 14:22
PROVIDERS: ATTEND Nurse Practitioner Family
DX: J44.9 Chronic obstructive pulmonary disease, unspecified (principal)
CPT/HCPCS: 99211

== ENCOUNTER → 2019-04-10 | Outpatient (CLI) | payer OTHER ==
[~2019-04-10] MED LIST changes: +HOLD METFORMIN - RECEIVED CONTRAST 20 ML VIAL IV SCH; +IOHEXOL 350 MG/ML 100 ML (OMNIPAQUE 350) VIAL IV ONE; -MELA3TAB39 PO; +MELA3TAB65 PO; +NS 100 ML (IVPB) BAG IV ONE; +RT-ALBUTEROL SULF 2.5 MG/3 ML PRE-MIX VIAL INH ONE
[2019-04-10 14:22] LABS: CREATININE SERUM 1.03 MG/DL (0.60-1.30)
--- NOTE | 2019-04-10 15:47 | Diagnostic Imaging Report ---
PROCEDURE: CT chest with contrast only. TECHNIQUE: Multiple contiguous axial images were obtained through the chest after administration of intravenous contrast. Auto Exposure Controls were utilized during the CT exam to meet ALARA standards for radiation dose reduction. DATE: April 10, 2019. COMPARISON: CT chest October 11, 2018. CT chest March 10, 2018. INDICATION: 63-year-old female, dyspnea. Pulmonary nodule. FINDINGS: There is a 4 mm noncalcified right upper lobe pulmonary nodule stable since at least March 2018. On the same image, there is a 2 mm pleurally-based pulmonary nodule which is also unchanged. There is mild focal atelectasis in the left upper lobe on axial image 69 and adjacent sequential images. There is no new or enlarging pulmonary nodule. There is no otherwise noted focal airspace consolidation. There is no pneumothorax. There is no pleural effusion. The central airways are patent. There is no identified pulmonary embolus. The heart is not enlarged. There is no pericardial effusion. There is no identified abnormally enlarged mediastinal, hilar, or axillary lymph node which meets CT size criteria for adenopathy. The patient is status post cholecystectomy. Additional evaluation of the imaged portions of the upper abdomen is unremarkable. There are degenerative changes of the spine. There is no identified acute bony abnormality. IMPRESSION: CT CHEST. 1. 4 mm right upper lobe pulmonary nodule and adjacent 1 mm pleurally-based right upper lobe pulmonary nodule stable since March 10, 2018. Recommend follow-up CT chest without contrast in one year to document greater than 2 year stability. 2. No acute cardiopulmonary abnormality. Dictated by: Dictated on workstation # [id number]
== END ==
LOC: RAD 13:50
PROVIDERS: ATTEND Nurse Practitioner Family
DX: G47.10 Hypersomnia, unspecified (principal); G47.33 Obstructive sleep apnea (adult) (pediatric); J45.909 Unspecified asthma, uncomplicated; G47.50 Parasomnia, unspecified; F41.9 Anxiety disorder, unspecified; R91.1 Solitary pulmonary nodule; Z87.891 Personal history of nicotine dependence
CPT/HCPCS: 36415; 71260; 82565; 84520; 94060; 94726; 94729

== ENCOUNTER → 2019-07-25 | Outpatient (CLI) | payer OTHER, MEDICARE ==
[~2019-07-25] MED LIST changes: -HOLD METFORMIN - RECEIVED CONTRAST 20 ML VIAL IV SCH; -IOHEXOL 350 MG/ML 100 ML (OMNIPAQUE 350) VIAL IV ONE; +MELA3TAB39 PO; -MELA3TAB65 PO; -NS 100 ML (IVPB) BAG IV ONE; -RT-ALBUTEROL SULF 2.5 MG/3 ML PRE-MIX VIAL INH ONE
== END ==
LOC: ORTHO 13:44
PROVIDERS: ATTEND Orthopaedic Surgery
DX: M17.11 Unilateral primary osteoarthritis, right knee (principal)

== ENCOUNTER → 2019-08-15 | Outpatient (CLI) | payer OTHER, MEDICARE ==
--- NOTE | 2019-08-15 18:37 | Diagnostic Imaging Report ---
INDICATION: Routine screening. COMPARISON is made with prior mammogram from 08/12/2018. 2-D and 3-D bilateral screening mammography was performed with CAD. Both breasts are heterogeneously dense, limiting the sensitivity of mammography. The parenchymal pattern is stable. No dominant mass or malignant appearing microcalcifications are seen. Axillae are unremarkable. IMPRESSION: BI-RADS Category 1. No mammographic features suspicious for malignancy are identified. Dictated by: Dictated on workstation # [id number]
== END ==
LOC: RAD 14:52
PROVIDERS: ATTEND Nurse Practitioner Family
DX: Z12.31 Encounter for screening mammogram for malignant neoplasm of breast (principal)
CPT/HCPCS: 77063; 77067

== ENCOUNTER → 2019-08-17 | Outpatient (CLI) | payer OTHER, MEDICARE ==
[~2019-08-17] MED LIST changes: +BARIUM for suspension 96% w/w (Vanilla Silq Medium Density) PO ONE; +BARIUM for suspension 98% w/w (Vanilla Silq High Density) PO ONE
--- NOTE | 2019-08-17 14:34 | Diagnostic Imaging Report ---
Indication: Dysphagia. Patient ingested effervescent crystals as well as thin and thick barium and imaging of the esophagus was performed. 1 minute and 30 seconds of fluoroscopic time was utilized. Esophagus does have a smooth contour. No mass or stricture is seen. Occasional tertiary contractions are noted. No hiatal hernia or significant gastroesophageal reflux is seen. Images of the stomach are unremarkable. IMPRESSION: Occasional tertiary contractions. The study is otherwise unremarkable. Dictated by: Dictated on workstation # [id number]
== END ==
LOC: RAD 10:29
PROVIDERS: ATTEND Nurse Practitioner Family
DX: R13.10 Dysphagia, unspecified (principal)
CPT/HCPCS: 74220

== ENCOUNTER → 2019-09-29 | Outpatient (CLI) | payer OTHER, MEDICARE ==
[~2019-09-29] MED LIST changes: -BARIUM for suspension 96% w/w (Vanilla Silq Medium Density) PO ONE; -BARIUM for suspension 98% w/w (Vanilla Silq High Density) PO ONE; +RT-ALBUTEROL SULF 2.5 MG/3 ML PRE-MIX VIAL INH ONE
== END ==
LOC: RT 15:14
PROVIDERS: ATTEND Nurse Practitioner Family
DX: J45.909 Unspecified asthma, uncomplicated (principal); G47.50 Parasomnia, unspecified; G47.33 Obstructive sleep apnea (adult) (pediatric); G47.10 Hypersomnia, unspecified; F41.9 Anxiety disorder, unspecified; R91.1 Solitary pulmonary nodule; Z87.891 Personal history of nicotine dependence
CPT/HCPCS: 94060; 94726; 94729

== ENCOUNTER → 2019-11-06 | Outpatient (CLI) | payer OTHER, MEDICARE ==
[~2019-11-06] MED LIST changes: -RT-ALBUTEROL SULF 2.5 MG/3 ML PRE-MIX VIAL INH ONE
--- NOTE | 2019-11-06 13:07 | Diagnostic Imaging Report ---
INDICATION: Osteoarthritis. FINDINGS: The alignment is normal. There are mild degenerative changes in the hips. There is no fracture or dislocation. There are degenerative changes in the lumbar spine. The soft tissues are unremarkable. IMPRESSION: Mild degenerative changes in the lumbar spine and right hip; otherwise, unremarkable. Dictated by: Dictated on workstation # [id number]
--- NOTE | 2019-11-06 13:08 | Diagnostic Imaging Report ---
INDICATION: Back pain. TECHNIQUE: Six views of the lumbosacral spine were obtained. FINDINGS: There is lower lumbar hypertrophic degenerative facet disease and degenerative disc disease. There is no spondylolysis. There are no acute fractures. IMPRESSION: Lower lumbar spondylosis and degenerative disc disease; otherwise, unremarkable. Dictated by: Dictated on workstation # [id number]
== END ==
LOC: ORTHO 10:13
PROVIDERS: ATTEND Orthopaedic Surgery
DX: M16.11 Unilateral primary osteoarthritis, right hip (principal); M51.36 Other intervertebral disc degeneration, lumbar region; M47.816 Spondylosis without myelopathy or radiculopathy, lumbar region
CPT/HCPCS: 72110; 73502; G0463

== ENCOUNTER → 2020-02-21 | Outpatient (CLI) | payer MEDICARE ==
[~2020-02-21] MED LIST changes: +AMLO-250 PO; -AMLO5TAB9 PO
== END ==
LOC: ORTHO 09:52
PROVIDERS: ATTEND Orthopaedic Surgery
DX: M17.11 Unilateral primary osteoarthritis, right knee (principal)
CPT/HCPCS: 20610; G0463

== ENCOUNTER → 2020-04-29 | Outpatient (CLI) | payer MEDICARE ==
[~2020-04-29] MED LIST changes: -HYDR50TA3 PO; +HYDR50TA6 PO
--- NOTE | 2020-04-29 15:40 | Diagnostic Imaging Report ---
INDICATION: Injury to the right shoulder. TIME OF EXAM: 12:08 PM Two views right shoulder were obtained. Glenohumeral and acromioclavicular alignment are normal. Acromial humeral space is normal. No fracture or dislocation is identified. IMPRESSION: No acute bony abnormality is detected. Dictated by: Dictated on workstation # [id number]
== END ==
LOC: ORTHO 11:04
PROVIDERS: ATTEND Orthopaedic Surgery
DX: M75.81 Other shoulder lesions, right shoulder (principal); M67.813 Other specified disorders of tendon, right shoulder
CPT/HCPCS: 73030; 99213

== ENCOUNTER → 2020-05-20 | Outpatient (CLI) | payer MEDICARE | LOC: ORTHO 10:56 | PROVIDERS: ATTEND Orthopaedic Surgery | DX: M75.101 Unspecified rotator cuff tear or rupture of right shoulder, not specified as traumatic (principal); S42.251A Displaced fracture of greater tuberosity of right humerus, initial encounter for closed fracture; M17.11 Unilateral primary osteoarthritis, right knee; J44.9 Chronic obstructive pulmonary disease, unspecified; E78.5 Hyperlipidemia, unspecified; X58.XXXA Exposure to other specified factors, initial encounter | CPT/HCPCS: 20610 ==

== ENCOUNTER → 2020-06-10 | Outpatient (CLI) | payer MEDICARE | LOC: ORTHO 11:21 | PROVIDERS: ATTEND Orthopaedic Surgery | DX: S42.251A Displaced fracture of greater tuberosity of right humerus, initial encounter for closed fracture (principal); M75.101 Unspecified rotator cuff tear or rupture of right shoulder, not specified as traumatic; J44.9 Chronic obstructive pulmonary disease, unspecified; E78.5 Hyperlipidemia, unspecified | CPT/HCPCS: 99212 ==

== ENCOUNTER → 2020-06-28 | Outpatient (CLI) | payer MEDICARE ==
[~2020-06-28] MED LIST changes: +CATHETER FLUSH 10 ML SYR IV PRN; +HOLD METFORMIN - RECEIVED CONTRAST 20 ML VIAL IV SCH; +IOHEXOL 350 MG/ML 100 ML (OMNIPAQUE 350) VIAL IV ONE; +NS 100 ML (IVPB) BAG IV ONE
[2020-06-28 11:04] LABS: CREATININE SERUM 0.98 MG/DL (0.60-1.30)
--- NOTE | 2020-06-28 11:54 | Diagnostic Imaging Report ---
EXAMINATION: CT Chest with intravenous contrast. TECHNIQUE: Multiple contiguous axial images were obtained through the chest after the uneventful administration of intravenous contrast. All CT scans use one or more of the following dose optimizing techniques: automated exposure control, MA and/or KvP adjustment based on a patient size and exam type, or iterative reconstruction. HISTORY: Abnormal chest CT. COMPARISON: 04/10/2019. FINDINGS: There is no edema or pneumonia. No pleural effusion. No pneumothorax. No suspicious nodules. The right upper lobe 4 mm and 1 mm pulmonary nodules are stable. There is no axillary or supraclavicular lymphadenopathy. There is no mediastinal lymphadenopathy. Heart size is normal. There are no coronary artery calcifications. No pericardial effusion. Aorta is normal in caliber. Limited views of the upper abdomen show changes of cholecystectomy. There are no suspicious osseous lesions. IMPRESSION: 1. Stable tiny pulmonary nodules which can be considered benign with no further follow-up needed. Dictated by: Dictated on workstation # [id number]
== END ==
LOC: RAD 11:45
PROVIDERS: ATTEND Internal Medicine Critical Care Medicine
DX: R91.8 Other nonspecific abnormal finding of lung field (principal)
CPT/HCPCS: 36415; 71260; 82565; 84520

== ENCOUNTER → 2020-07-03 | Outpatient (CLI) | payer MEDICARE ==
[~2020-07-03] MED LIST changes: -CATHETER FLUSH 10 ML SYR IV PRN; -HOLD METFORMIN - RECEIVED CONTRAST 20 ML VIAL IV SCH; -IOHEXOL 350 MG/ML 100 ML (OMNIPAQUE 350) VIAL IV ONE; -NS 100 ML (IVPB) BAG IV ONE
== END ==
LOC: ORTHO 11:18
PROVIDERS: ATTEND Orthopaedic Surgery
DX: S42.251D Displaced fracture of greater tuberosity of right humerus, subsequent encounter for fracture with routine healing (principal); M75.91 Shoulder lesion, unspecified, right shoulder

== ENCOUNTER 2020-07-15 14:41 | Outpatient (RCR) | payer MEDICARE | END 2020-08-05 | disposition home or self-care (01) | PROVIDERS: ATTEND Orthopaedic Surgery | DX: M67.813 Other specified disorders of tendon, right shoulder (principal); W19.XXXA Unspecified fall, initial encounter ==

== ENCOUNTER → 2020-07-24 | Outpatient (CLI) | payer MEDICARE | LOC: ORTHO 10:52 | PROVIDERS: ATTEND Orthopaedic Surgery | DX: S42.251A Displaced fracture of greater tuberosity of right humerus, initial encounter for closed fracture (principal); M75.101 Unspecified rotator cuff tear or rupture of right shoulder, not specified as traumatic; J44.9 Chronic obstructive pulmonary disease, unspecified; E66.01 Morbid (severe) obesity due to excess calories; E78.5 Hyperlipidemia, unspecified; X58.XXXA Exposure to other specified factors, initial encounter | CPT/HCPCS: 99212 ==

== ENCOUNTER → 2020-08-21 | Outpatient (CLI) | payer MEDICARE | LOC: ORTHO 10:22 | PROVIDERS: ATTEND Orthopaedic Surgery | DX: M17.11 Unilateral primary osteoarthritis, right knee (principal); J44.9 Chronic obstructive pulmonary disease, unspecified; E78.5 Hyperlipidemia, unspecified; E66.01 Morbid (severe) obesity due to excess calories | CPT/HCPCS: 20610 ==

== ENCOUNTER → 2020-09-30 | Outpatient (CLI) | payer MEDICARE, MEDICAID | LOC: ORTHO 10:40 | PROVIDERS: ATTEND Orthopaedic Surgery | DX: M75.101 Unspecified rotator cuff tear or rupture of right shoulder, not specified as traumatic (principal); J44.9 Chronic obstructive pulmonary disease, unspecified; E78.5 Hyperlipidemia, unspecified; E66.01 Morbid (severe) obesity due to excess calories | CPT/HCPCS: 20610 ==

== ENCOUNTER → 2020-11-20 | Outpatient (CLI) | payer MEDICARE, MEDICAID | LOC: ORTHO 11:07 | PROVIDERS: ATTEND Orthopaedic Surgery | DX: M17.11 Unilateral primary osteoarthritis, right knee (principal); E78.5 Hyperlipidemia, unspecified; E66.01 Morbid (severe) obesity due to excess calories | CPT/HCPCS: 20610 ==

== ENCOUNTER 2020-12-03 10:51 | Outpatient (RCR) | payer MEDICARE, MEDICAID | END 2020-12-20 10:52 | disposition home or self-care (01) | PROVIDERS: ATTEND Nurse Practitioner Family | DX: J44.9 Chronic obstructive pulmonary disease, unspecified (principal); M06.9 Rheumatoid arthritis, unspecified; G47.30 Sleep apnea, unspecified; F32.9 Major depressive disorder, single episode, unspecified; M79.7 Fibromyalgia; H26.9 Unspecified cataract; Z87.891 Personal history of nicotine dependence ==

== ENCOUNTER → 2020-12-30 | Outpatient (CLI) | payer MEDICARE, MEDICAID | LOC: ORTHO 11:12 | PROVIDERS: ATTEND Orthopaedic Surgery | DX: M75.101 Unspecified rotator cuff tear or rupture of right shoulder, not specified as traumatic (principal) | CPT/HCPCS: 20610 ==

== ENCOUNTER → 2021-02-17 | Outpatient (CLI) | payer MEDICARE, MEDICAID ==
[~2021-02-17] MED LIST changes: -DULO60CA6 PO; +DULO60CA7 PO
== END ==
LOC: ORTHO 10:35
PROVIDERS: ATTEND Orthopaedic Surgery
DX: M17.11 Unilateral primary osteoarthritis, right knee (principal); M51.36 Other intervertebral disc degeneration, lumbar region
CPT/HCPCS: 20610

== ENCOUNTER 2021-02-25 16:04 | Emergency (ER) | payer MEDICARE, MEDICAID ==
[~2021-02-25] VITALS: Ht 170 cm; Wt 110.0 kg
--- NOTE | 2021-02-25 16:26 | ED Chest Pain ---
General Chief Complaint: Chest Pain Stated Complaint: HIGH BLOOD PRESSURE, CHEST PAIN, HEADACHE Source: patient Exam Limitations: no limitations (RADHA LIAO APRN) History of Present Illness Date Seen by Provider: Feb 25, 2021 Time Seen by Provider: 16:24 Initial Comments To ER with high blood pressure for 2 to 3 days. She has had dyspnea on exertion and general fatigue for about a month. She has had a headache for a few days. She sees Savana [facility] at [facility] in [place]. She has had sensation of a knot or a fist being pushed into her chest she states for about 3 to 4 days. She does report a lot of anxiety secondary to this. She has known hypertension but does not have other known risk factors such as known coronary disease, diabetes, hyperlipidemia or smoking status. Timing/Duration: 1-2 days Severity/Quality: moderate Location: central Radiation: no radiation Activities at Onset: none Prior CP/Workup: no prior chest pain ASA po TECHNOLOGY SUPPORT ANALYST: No NTG SL TECHNOLOGY SUPPORT ANALYST: No (RADHA LIAO APRN) Allergies and Home Medications Allergies Coded Allergies: No Known Drug Allergies (Unverified , 02/14/18) Patient Home Medication List Home Medication List Reviewed: Yes (RADHA LIAO APRN) Albuterol Sulfate (Proair Hfa) 1 Puff Puff, 2 PUFF IH QID PRN for SHORTNESS OF BREATH, (Reported) Entered as Reported by: WILFREDO KOHLER on 02/22/18 111 Amlodipine Besylate (Amlodipine Besylate) 5 Mg Tablet, 5 MG PO DAILY, (Reported) Entered as Reported by: WILFREDO KOHLER on 02/22/18 111 Aspirin (Aspirin) 325 Mg Tablet, 325 MG PO Q72H, (Reported) Entered as Reported by: WILFREDO KOHLER on 02/22/18 111 Atorvastatin Calcium (Atorvastatin Calcium) 20 Mg Tablet, 20 MG PO DAILY, (Repor tod) Entered as Reported by: WILFREDO KOHLER on 02/22/18 111 Budesonide/Formoterol Fumarate (Symbicort 160-4.5 Mcg Inhaler) 10.2 Gm Hfa.aer.ad, 2 PUFF IH BID, (Reported) Entered as Reported by: WILFREDO KOHLER on 02/22/18 111 Cholecalciferol (Vitamin D3) (Vitamin D3) 1,000 Unit Capsule, 1,000 UNIT PO DAILY, (Reported) Entered as Reported by: WILFREDO KOHLER on 02/22/181114 Clonidine HCl (Clonidine HCl) 0.1 Mg Tablet, 0.1 MG PO BID PRN for SYSTOLIC BLOOD PRESSURE Prescribed by: RADHA LIAO on 02/25/211805 Cyanocobalamin (Vitamin B-12) (Vitamin B-12) 1,000 Mcg Tablet, 1,000 MCG PO DAILY, (Reported) Entered as Reported by: WILFREDO KOHLER on 02/22/181114 Duloxetine HCl (Cymbalta) 60 Mg Capsule.dr, 60 MG PO DAILY, (Reported) Entered as Reported by: WILFREDO KOHLER on 02/22/181113 Escitalopram Oxalate (Lexapro) 20 Mg Tablet, 20 MG PO DAILY, (Reported) Entered as Reported by: WILFREDO KOHLER on 02/22/181113 Esomeprazole Magnesium (Nexium) 40 Mg Cap, 40 MG PO DAILY, (Reported) Entered as Reported by: WILFREDO KOHLER on 02/22/181113 Gabapentin (Gabapentin) 800 Mg Tablet, 400 MG PO DAILY, (Reported) Entered as Reported by: WILFREDO KOHLER on 02/22/18 111 Gabapentin (Gabapentin) 800 Mg Tablet, 800 MG PO HS, (Reported) Entered as Reported by: WILFREDO KOHLER on 02/22/181113 Hydrochlorothiazide (Hydrochlorothiazide) 50 Mg Tablet, 50 MG PO DAILY PRN for SWELLILNG, (Reported) Entered as Reported by: WILFREDO KOHLER on 02/22/181113 Losartan Potassium (Losartan Potassium) 100 Mg Tablet, 100 MG PO DAILY, (Reported) Entered as Reported by: WILFREDO KOHLER on 02/22/181113 Melatonin (Melatonin) 3 Mg Tablet, 6 MG PO HS, (Reported) Entered as Reported by: WILFREDO KOHLER on 02/22/181113 Multivitamin (Daily Multiple Vitamin) 1 Each Tablet, 1 TAB PO DAILY, (Reported) Entered as Reported by: WILFREDO KOHLER on 02/22/181114 Tramadol HCl (Tramadol HCl) 50 Mg Tablet, 50 MG PO Q4H PRN for PAIN-MODERATE, (Reported) Entered as Reported by: WILFREDO KOHLER on 12/18/18 1114 Trazodone HCl (Trazodone HCl) 50 Mg Tablet, 50 MG PO HS, (Reported) Entered as Reported by: WILFREDO KOHLER on 02/22/18 1114 Review of Systems Review of Systems Constitutional: see HPI, chills EENTM: No Symptoms Reported Respiratory: See HPI Cardiovascular: See HPI, Chest Pain Gastrointestinal: No Symptoms Reported Genitourinary: No Symptoms Reported Musculoskeletal: no symptoms reported Skin: no symptoms reported Psychiatric/Neurological: No Symptoms Reported Endocrine: No Symptoms Reported (RADHA LIAO APRN) Past Cwendib-Banxrg-Deahwg Hx Seasonal Allergies Seasonal Allergies: Yes (RADHA LIAO APRN) Past Medical History Surgeries: Yes (TONICIL,TUBAL,HYST,R KNEE LAP,CHOLY,FIBROMIALGIA) Respiratory: Yes COPD Currently Using CPAP: No Currently Using BIPAP: No Cardiac: No Neurological: No 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 8.0oz. 124.960050hs; 43.1 BMI Method: General Appearance: No Apparent Distress, WD/WN, Anxious, Other (Pressure 190/100) Neck: Full Range of Motion Respiratory: No Accessory Muscle Use, No Respiratory Distress Cardiovascular: Regular Rate, Rhythm, Normal Peripheral Pulses Gastrointestinal: Normal Bowel Sounds, Non Tender, Soft Extremity: Normal Capillary Refill, Normal Inspection Neurologic/Psychiatric: Alert, Oriented x3 Skin: Normal Color, Warm/Dry (RADHA LIAO APRN) Progress/Results/Core Measures Results/Orders Lab Results Laboratory Tests Test 02/25/21 16:15 Range/Units White Blood Count 7.9 4.3-11.0 10^3/uL Red Blood Count 4.67 3.80-5.11 10^6/uL Hemoglobin 13.6 11.5-16.0 g/dL Hematocrit 42 35-52 % Mean Corpuscular Volume 90 80-99 fL Mean Corpuscular Hemoglobin 29 25-34 pg Mean Corpuscular Hemoglobin Concent 32 32-36 g/dL Red Cell Distribution Width 12.7 10.0-14.5 % Platelet Count 215 130-400 10^3/uL Mean Platelet Volume 10.0 9.0-12.2 fL Immature Granulocyte % (Auto) 1 % Neutrophils (%) (Auto) 66 42-75 % Lymphocytes (%) (Auto) 20 12-44 % Monocytes (%) (Auto) 9 0-12 % Eosinophils (%) (Auto) 3 0-10 % Basophils (%) (Auto) 1 0-10 % Neutrophils # (Auto) 5.2 1.8-7.8 10^3/uL Lymphocytes # (Auto) 1.6 1.0-4.0 10^3/uL Monocytes # (Auto) 0.7 0.0-1.0 10^3/uL Eosinophils # (Auto) 0.2 0.0-0.3 10^3/uL Basophils # (Auto) 0.1 0.0-0.1 10^3/uL Immature Granulocyte # (Auto) 0.1 0.0-0.1 10^3/uL Prothrombin Time 12.2 12.2-14.7 SEC INR Comment 0.9 0.8-1.4 Activated Partial Thromboplast Time 26 24-35 SEC D-Dimer 1.20 H 0.00-0.49 UG/ML Sodium Level 139 135-145 MMOL/L Potassium Level 4.3 3.6-5.0 MMOL/L Chloride Level 106 98-107 MMOL/L Carbon Dioxide Level 21 21-32 MMOL/L Anion Gap 12 5-14 MMOL/L Blood Urea Nitrogen 15 7-18 MG/DL Creatinine 0.91 0.60-1.30 MG/DL Estimat Glomerular Filtration Rate 62 BUN/Creatinine Ratio 16 Glucose Level 97 70-105 MG/DL Calcium Level 9.2 8.5-10.1 MG/DL Corrected Calcium 9.4 8.5-10.1 MG/DL Magnesium Level 1.9 1.6-2.4 MG/DL Total Bilirubin 0.3 0.1-1.0 MG/DL Aspartate Amino Transf (AST/SGOT) 14 5-34 U/L Alanine Aminotransferase (ALT/SGPT) 19 0-55 U/L Alkaline Phosphatase 66 40-136 U/L Myoglobin 31.8 10.0-92.0 NG/ML Troponin I < 0.028 <0.028 NG/ML B-Type Natriuretic Peptide 21.8 <100.0 PG/ML Total Protein 6.9 6.4-8.2 GM/DL Albumin 3.8 3.2-4.5 GM/DL (ASIA MATHIS MD) Vital Signs/I&O 02/25/21 02/25/21 16:10 18:33 Temp 36.3 Pulse 67 68 Resp 22 18 B/P (MAP) 193/103 (133) 156/79 Pulse Ox 95 97 (ASIA MATHIS MD) Departure Communication (Admissions) 1808-her troponin is negative despite a couple days of constant chest pain. She had a clean cardiac catheterization 3 years ago here. Blood pressure has fallen to a current 159/90 after 0.5 mg lorazepam. Family Conversation NAME: LILLIAN CARDOZO [facility] REC#: [id number] PT STATUS: REG ER : 1955 PHYSICIAN: RADHA LIAO APRN ADMIT DATE: 02/25/21/ER Signed Date of Exam:02/25/21 CHEST 1 VIEW, AP/PA ONLY CHEST 1 VIEW, AP/PA ONLY Indication: Chest pain. Comparison: 03/24/2018 Findings: No focal airspace disease in the visualized lungs. Please note that the posterior lower lobes are poorly evaluated by portable radiography. No pleural effusion or pneumothorax. Normal cardiomediastinal silhouette. Impression: 1. No acute cardiopulmonary process by portable radiography. Dictated by: Dictated on workstation # [id number] Dict: 02/25/211652 Trans: 02/25/211652 [facility] [id number] Interpreted by: LEIGHTON JARRELL MD Electronically signed by: LEIGHTON JARRELL MD 02/25/211652 NAME: LILLIAN CARDOZO [facility] REC#: [id number] PT STATUS: REG ER : 1955 PHYSICIAN: RADHA LIAO APRN ADMIT DATE: 02/25/21/ER Signed Date of Exam:02/25/21 CHEST 1 VIEW, AP/PA ONLY CHEST 1 VIEW, AP/PA ONLY Indication: Chest pain. Comparison: 03/24/2018 Findings: No focal airspace disease in the visualized lungs. Please note that the posterior lower lobes are poorly evaluated by portable radiography. No pleural effusion or pneumothorax. Normal cardiomediastinal silhouette. Impression: 1. No acute cardiopulmonary process by portable radiography. Dictated by: Dictated on workstation # [id number] Dict: 02/25/211652 Trans: 02/25/211652 [facility] [phone] Interpreted by: LEIGHTON JARRELL MD Electronically signed by: LEIGHTON JARRELL MD 02/25/211652 (RADHA LIAO APRN) Impression Primary Impression: Hypertension Additional Impression: Anxiety Disposition: 01 HOME, SELF-CARE Condition: Stable Departure-Patient Inst. Decision time for Depature: 18:03 (RADHA LIAO APRN) Referrals: SHAWN WALKER APRN (PCP) Primary Care Physician Patient Instructions: Low Salt Diet, Medicines for High Blood Pressure Add. Discharge Instructions: 1. Follow-up with primary care next week. Return to ER for any worsening. Take the medication called clonidine 0.1 mg up to twice a day as needed if the top number on your blood pressure is over 170. All discharge instructions reviewed with patient and/or family. Voiced understanding. Scripts Clonidine HCl (Clonidine HCl) 0.1 Mg Tablet 0.1 MG PO BID PRN for SYSTOLIC BLOOD PRESSURE, #10 TAB BID PRN SBP > 170 Prov: RADHA LIAO APRN 02/25/21 ATTENDING PHYSICIAN NOTE: I was physically present as attending physician in the emergency department dur ing the care of this patient, but I was not directly involved in the decision making or delivery of care for this patient. (ASIA MATHIS MD) RADHA LIAO APRN Feb 25, 2021 16:26 ASIA MATHIS MD Feb 26, 2021 20:54
[2021-02-25] MEDS ORDERED: LORazepam INJ 2 MG/ML (ATIVAN) VIAL IVP PRN (16:30)
[2021-02-25] MEDS ORDERED: ASPIRIN 81 MG CHEW (CHILDREN'S ASA) PO ONE (16:30)
[2021-02-25 16:41] LABS: BASOPHILS # (AUTO) 0.1 10^3/uL (0.0-0.1); BASOPHILS % (AUTO) 1 % (0-10); EOSINOPHILS # (AUTO) 0.2 10^3/uL (0.0-0.3); EOSINOPHILS % (AUTO) 3 % (0-10); HEMATOCRIT 42 % (35-52); HEMOGLOBIN 13.6 g/dL (11.5-16.0); LYMPHOCYTES # (AUTO) 1.6 10^3/uL (1.0-4.0); LYMPHOCYTES % (AUTO) 20 % (12-44); MEAN CORPUSCULAR HEMOGLOBIN 29 pg (25-34); MEAN CORPUSCULAR HGB CONC 32 g/dL (32-36); MEAN CORPUSCULAR VOLUME 90 fL (80-99); MONOCYTES # (AUTO) 0.7 10^3/uL (0.0-1.0); MONOCYTES % (AUTO) 9 % (0-12); NEUTROPHILS # (AUTO) 5.2 10^3/uL (1.8-7.8); NEUTROPHILS % (AUTO) 66 % (42-75); PLATELET COUNT 215 10^3/uL (130-400); WHITE BLOOD COUNT 7.9 10^3/uL (4.3-11.0)
[2021-02-25 16:54] LABS: INR 0.9 (0.8-1.4); PROTHROMBIN TIME PATIENT 12.2 SEC (12.2-14.7)
--- NOTE | 2021-02-25 16:55 | Diagnostic Imaging Report ---
CHEST 1 VIEW, AP/PA ONLY Indication: Chest pain. Comparison: 03/24/2018 Findings: No focal airspace disease in the visualized lungs. Please note that the posterior lower lobes are poorly evaluated by portable radiography. No pleural effusion or pneumothorax. Normal cardiomediastinal silhouette. Impression: 1. No acute cardiopulmonary process by portable radiography. Dictated by: Dictated on workstation # [id number]
[2021-02-25 17:03] LABS: ALBUMIN 3.8 GM/DL (3.2-4.5); BILIRUBIN,TOTAL 0.3 MG/DL (0.1-1.0); CALCIUM 9.2 MG/DL (8.5-10.1); CREATININE SERUM 0.91 MG/DL (0.60-1.30); MAGNESIUM 1.9 MG/DL (1.6-2.4); POTASSIUM 4.3 MMOL/L (3.6-5.0); TOTAL PROTEIN 6.9 GM/DL (6.4-8.2)
[2021-02-25] MEDS ORDERED: IOHEXOL 350 MG/ML 100 ML (OMNIPAQUE 350) VIAL IV ONE (17:30)
[2021-02-25] MEDS ORDERED: HOLD METFORMIN - RECEIVED CONTRAST 20 ML VIAL IV SCH (17:30)
[2021-02-25] MEDS ORDERED: NS 100 ML (IVPB) BAG IV ONE (17:30)
--- NOTE | 2021-02-25 17:38 | Diagnostic Imaging Report ---
PROCEDURE: CT angiography of the chest with contrast. TECHNIQUE: Multiple contiguous axial images were obtained through the chest after uneventful bolus administration of intravenous contrast. 3D reconstructed CTA MIP acquisitions were also performed. Auto Exposure Controls were utilized during the CT exam to meet ALARA standards for radiation dose reduction. INDICATION: Chest pain. CORRELATION is made with prior CT chest from 06/28/2020. Evaluation of the pulmonary arterial system is without evidence of thromboembolism. No filling defects are seen within central, lobar or segmental branches. Thoracic aorta is normal caliber. There is no dissection. No pericardial or pleural fluid is identified. No infiltrates or masses are identified. Upper abdomen is unremarkable. IMPRESSION: 1. No evidence of pulmonary embolism or acute aortic disease. No acute feature is detected. Dictated by: Dictated on workstation # [id number]
[2021-02-25] MEDS ORDERED: CLN.1T PO (18:06)
[2021-02-25] MEDS ORDERED: KETOROLAC 30 MG/ML VIAL IVP ONE (18:15)
[2021-02-25] MEDS ORDERED: cloNIDine 0.1 MG (CATAPRES) TAB PO ONE (18:15)
[2021-02-25 18:33] VITALS: BP 156/79
== END 2021-02-25 18:33 | disposition home or self-care (01) ==
LOC: EDUNIT# 16:04 → ER 16:07
DX: I10 Essential (primary) hypertension (principal); F41.9 Anxiety disorder, unspecified; J44.9 Chronic obstructive pulmonary disease, unspecified; Z87.820 Personal history of traumatic brain injury; Z79.82 Long term (current) use of aspirin
CPT/HCPCS: 36415; 71045; 71275; 80053; 83735; 83874; 83880; 84484; 85025; 85379; 85610; 85730; 93041

== ENCOUNTER → 2021-03-06 | Outpatient (CLI) | payer MEDICARE, MEDICAID ==
[~2021-03-06] MED LIST changes: +CLN.1T PO
--- NOTE | 2021-03-06 16:04 | Diagnostic Imaging Report ---
EXAMINATION: Lumbar spine MRI without contrast, 03/06/2021. TECHNIQUE: Multiplanar, multisequence MRI of the lumbar spine was performed without contrast. INDICATION: Low back pain. Issues with walking. FINDINGS: There is minimal grade 1 anterolisthesis at L4-L5 with remaining alignment preserved. Vertebral body heights are maintained. Tip of the conus is unremarkable in appearance and location. L1-L2: There is intervertebral disc space narrowing, disc desiccation, and mild broad-based bulging disc material. There is bilateral facet and ligamentum flavum hypertrophy. There is no significant central stenosis, but there is mild narrowing of the left lateral recess. There is moderate bilateral neural foraminal stenosis. L2-L3: There is disc desiccation with a mild broad-based bulging disc. There is bilateral facet and ligamentum flavum hypertrophy. There is no central stenosis with minimal narrowing of the left lateral recess. There is [id number] bilateral neural foraminal stenosis. L3-L4: There is disc desiccation with a mild broad-based bulging disc. There is mild facet and ligamentum flavum hypertrophy. There is no central stenosis. There is moderate bilateral neural foraminal narrowing. L4-L5: There is intervertebral disc space narrowing, disc desiccation, and a broad-based bulging disc with bilateral facet and ligamentum flavum hypertrophy. There is secondary moderate central stenosis with narrowing of the lateral recesses bilaterally. There is moderate to near-severe bilateral neural foraminal stenosis. L5-S1: There is a right paracentral broad-based bulging disc. There is bilateral facet and ligamentum flavum hypertrophy. There is no significant central stenosis. There is [id number] bilateral neural foraminal narrowing. The visualized intra-abdominal structures are unremarkable. IMPRESSION: 1. Multilevel diffuse degenerative disease as discussed above. Dictated by: Dictated on workstation # [id number]
== END ==
LOC: RAD 14:00
PROVIDERS: ATTEND Orthopaedic Surgery
DX: M51.27 Other intervertebral disc displacement, lumbosacral region (principal); M47.817 Spondylosis without myelopathy or radiculopathy, lumbosacral region; M48.07 Spinal stenosis, lumbosacral region; M51.36 Other intervertebral disc degeneration, lumbar region
CPT/HCPCS: 72148

== ENCOUNTER → 2021-03-11 | Outpatient (CLI) | payer MEDICARE, MEDICAID ==
--- NOTE | 2021-03-11 13:54 | Diagnostic Imaging Report ---
PROCEDURE: US Renal Bilateral. TECHNIQUE: Multiple real-time grayscale images were obtained over the kidneys in various projections bilaterally. INDICATION: Hypertension. COMPARISON: None. FINDINGS: The right kidney measures 10.7 cm in length. There is no hydronephrosis. No masses or calculi are seen. There is blood flow in the kidney. The left kidney measures 10.3 cm in length. No masses, hydronephrosis, or calculi are seen. Blood flow appears normal. The bladder demonstrates bilateral ureteral jets, and no filling defects are seen. IMPRESSION: 1. Normal renal ultrasound. Dictated by: Dictated on workstation # [id number]
== END ==
LOC: RAD 13:00
PROVIDERS: ATTEND Nurse Practitioner Family
DX: I10 Essential (primary) hypertension (principal)
CPT/HCPCS: 76770

== ENCOUNTER → 2021-04-03 | Outpatient (CLI) | payer MEDICARE, MEDICAID | LOC: CARD 11:00 | PROVIDERS: ATTEND Nurse Practitioner Family | DX: R07.89 Other chest pain (principal); R55 Syncope and collapse | CPT/HCPCS: 93225; 93226; 93306 ==

== ENCOUNTER → 2021-04-04 | Outpatient (CLI) | payer MEDICARE, MEDICAID ==
[~2021-04-04] VITALS: Ht 170 cm; Wt 109.0 kg
[~2021-04-04] MED LIST changes: +REGADENOSON 0.4 MG/5 ML SYR (LEXISCAN) IV ONE
[2021-04-04] MEDS: CATHETER FLUSH 10 ML SYR IV PRN ×2 (08:19→09:26)
[2021-04-04 09:12] VITALS: BP 152/84
== END ==
LOC: CARD 08:15
PROVIDERS: ATTEND Nurse Practitioner Family
DX: R07.89 Other chest pain (principal)
CPT/HCPCS: 78452; 93017

== ENCOUNTER → 2021-05-14 | Outpatient (CLI) | payer MEDICARE, MEDICAID ==
[~2021-05-14] MED LIST changes: -REGADENOSON 0.4 MG/5 ML SYR (LEXISCAN) IV ONE
== END ==
LOC: ORTHO 11:11
PROVIDERS: ATTEND Orthopaedic Surgery
DX: M17.11 Unilateral primary osteoarthritis, right knee (principal)
CPT/HCPCS: 20610

== ENCOUNTER → 2021-06-11 | Outpatient (CLI) | payer MEDICARE, MEDICAID | LOC: ORTHO 10:15 | PROVIDERS: ATTEND Orthopaedic Surgery | DX: M75.101 Unspecified rotator cuff tear or rupture of right shoulder, not specified as traumatic (principal) | CPT/HCPCS: 20610 ==

== ENCOUNTER → 2021-07-28 | Outpatient (CLI) | payer MEDICARE, MEDICAID | LOC: ORTHO 10:45 | PROVIDERS: ATTEND Orthopaedic Surgery | DX: M17.11 Unilateral primary osteoarthritis, right knee (principal) | CPT/HCPCS: 20610 ==

== ENCOUNTER → 2021-12-17 | Outpatient (CLI) | payer MEDICARE, MEDICAID ==
[~2021-12-17] MED LIST changes: +RT-ALBUTEROL SULF 2.5 MG/3 ML PRE-MIX VIAL INH ONE
== END ==
LOC: RT 14:15
PROVIDERS: ATTEND Nurse Practitioner Family
DX: J45.40 Moderate persistent asthma, uncomplicated (principal); G47.33 Obstructive sleep apnea (adult) (pediatric)
CPT/HCPCS: 94060; 94726; 94729

== ENCOUNTER → 2021-12-17 | Outpatient (CLI) | payer MEDICARE, MEDICAID ==
[~2021-12-17] MED LIST changes: -RT-ALBUTEROL SULF 2.5 MG/3 ML PRE-MIX VIAL INH ONE
== END ==
LOC: ORTHO 10:40
PROVIDERS: ATTEND Orthopaedic Surgery
DX: M17.11 Unilateral primary osteoarthritis, right knee (principal); J44.9 Chronic obstructive pulmonary disease, unspecified; I10 Essential (primary) hypertension; E78.2 Mixed hyperlipidemia; E66.01 Morbid (severe) obesity due to excess calories
CPT/HCPCS: 20610